=== PATIENT | female | born 1955 | race Two or more races ===

== ENCOUNTER 2020-06-08 18:15 | Inpatient (IN) | payer OTHER, MEDICARE ==
[~2020-06-08] VITALS: Ht 162.6 cm; Wt 112.9 kg
[~2020-06-08 18:15] MED LIST: ACCU-CHEK; ACET-2154 PO; ALBU2.5V38 IH; AMIN30LI2 PO; AMLO10TA59 PO; ATOR20TA PO; CHLO118L4 TP; CLON1PAT TD; CRANBERRY CAP PO; DOCU-141 PO; EPOE3000 SQ; FERR325T28 PO; FLUT16SP2 NS; FURO-152 PO; HYDR25TA86 PO; INSU100I19 SQ; LACT1CAP26 PO; LEVO500T2 PO; MULT-594 PO; Metoprolol Tartrate PO; OMEPRAZOLE PO; POTA-10 PO; TRAM50TA PO
--- NOTE | 2020-06-08 18:56 | NUR ---
Assumed care of patient. No acute distress noted. Awaiting inpatient admission.
[2020-06-08 18:58] LABS: BASOPHILS # (AUTO) 0.1 K/uL (0.0-8.0); BASOPHILS % (AUTO) 0.9 % (0.0-2.0); EOSINOPHILS # (AUTO) 0.1 K/uL (0.0-0.7); EOSINOPHILS % (AUTO) 0.9 % (0.0-7.0); HEMATOCRIT 29.5 % (31.2-41.9); HEMOGLOBIN 8.7 g/dL (10.9-14.3); LYMPHOCYTES # (AUTO) 1.3 K/uL (20.0-40.0); LYMPHOCYTES % (AUTO) 10.2 % (20.5-51.5); MEAN CORPUSCULAR HEMOGLOBIN 23.2 uug (24.7-32.8); MEAN CORPUSCULAR HGB CONC 30 g/dL (32.3-35.6); MEAN CORPUSCULAR VOLUME 78.5 fL (75.5-95.3); MONOCYTES # (AUTO) 0.7 K/uL (2.0-10.0); MONOCYTES % (AUTO) 5.2 % (0.0-11.0); NEUTROPHILS # (AUTO) 10.5 K/uL (1.8-8.9); NEUTROPHILS % (AUTO) 82.8 % (38.5-71.5); PLATELET COUNT (AUTO) 522 K/uL (179-408); RED BLOOD CELL COUNT(AUTO) 3.75 MIL/uL (3.63-4.92); WHITE BLOOD COUNT (AUTO) 12.7 K/uL (3.8-11.8)
[2020-06-08 19:19] LABS: BILIRUBIN,DIRECT 0.1 mg/dL (0.0-0.2); BILIRUBIN,TOTAL 0.3 mg/dL (0.2-1.0); POTASSIUM 4.8 mmol/L (3.5-5.1); TOTAL PROTEIN, SERUM 7.6 g/dL (6.4-8.2)
[2020-06-08 19:21] LABS: CREATININE 7.5 mg/dL (0.6-1.3)
[2020-06-08] MEDS ORDERED: MORPHINE SULFATE 2 MG/1 ML DISP.SYRIN ONE (19:44)
[2020-06-08] MEDS ORDERED: CALCIUM GLUCONATE IV 1 GM in IV DEXTROSE 5% 50 ML IV ONE (19:45)
[2020-06-08] MEDS ORDERED: MORPHINE SULFATE 2 MG/1 ML DISP.SYRIN IV ONE (19:45)
--- NOTE | 2020-06-08 19:47 | NUR ---
RT at bedside to suction the patient
[2020-06-08] MEDS ORDERED: CALCIUM GLUCONATE 1 GM/10 ML VIAL IV ONE (19:52)
[2020-06-08 19:54] LABS: *BILIRUBIN,URIN NEGATIVE (NEGATIVE); *BLOOD, URINE 2+ (NEGATIVE); *CLARITY,URINE CLOUDY (CLEAR); *COLOR,URINE YELLOW (YELLOW); *KETONES,URINE NEGATIVE (NEGATIVE); *UROBILINOGEN,URINE 0.2 E.U./dl (NORMAL); LEUKOCYTE ESTERASE ,URINE 3+ (NEGATIVE); NITRITE, URINE POSITIVE (NEGATIVE); UGLUCOSE NEGATIVE (NEGATIVE)
[2020-06-08] MEDS ORDERED: PIPERACILLIN SODIUM/TAZOBACTAM 3.375 G in IV DEXTROSE 5% 50 ML IV ONE (20:00)
[2020-06-08] MEDS ORDERED: IV NORMAL SALINE 1000 ML BAG IV ONE (20:00)
[2020-06-08] MEDS ORDERED: CHOL10002 PO (20:02)
[2020-06-08] MEDS ORDERED: POTA20TA83 PO (20:02)
[2020-06-08] MEDS ORDERED: VITAMIN D3 PO (20:02)
[2020-06-08] MEDS ORDERED: FERR325T28 PO (20:02)
[2020-06-08] MEDS ORDERED: MAGN400C PO (20:02)
[2020-06-08] MEDS ORDERED: CRAN425C6 PO (20:02)
[2020-06-08] MEDS ORDERED: LOSA50TA39 PO (20:02)
[2020-06-08] MEDS ORDERED: METO50CA PO (20:02)
[2020-06-08] MEDS ORDERED: FURO-151 PO (20:02)
[2020-06-08] MEDS ORDERED: IPRA4AER IH (20:02)
[2020-06-08] MEDS ORDERED: ATOR20TA PO (20:02)
[2020-06-08] MEDS ORDERED: POTASSIUM PO (20:02)
[2020-06-08] MEDS ORDERED: TRAM50TA2 PO (20:02)
[2020-06-08] MEDS ORDERED: INSU100I26 SQ (20:02)
[2020-06-08] MEDS ORDERED: CLON0.1T PO (20:02)
[2020-06-08] MEDS ORDERED: METO5TAB7 PO (20:02)
[2020-06-08] MEDS ORDERED: APIX5TAB PO (20:02)
[2020-06-08] MEDS ORDERED: EPOE1000 IJ (20:02)
[2020-06-08] MEDS ORDERED: LIDOCAINE GEL TOP (20:02)
[2020-06-08] MEDS ORDERED: PIPERACILLIN/TAZOBACTAM/D5W 50 ML IV ONE (20:03)
--- NOTE | 2020-06-08 20:03 | NUR ---
Report to Shila MARINELLI on Tele Pt. admitted to Tele , under care of Dr. Bose Belongs List completed
[2020-06-08 20:05] LABS: RBC,URINE 20-50 /HPF (0-3)
[2020-06-08 20:06] LABS: BACTERIA,URINE MODERATE /HPF (NONE SEEN); SQUAMOUS EPITHELIAL CELL,UR FEW /HPF (NONE SEEN)
[2020-06-08 20:07] LABS: WBC,URINE 50-80 /HPF (0-3)
--- NOTE | 2020-06-08 21:15 | NUR ---
Pt arrived on unit at 2049 in stable condition. AOx4 able to make needs known. Assessment complete, belongings accounted for. Trach with trach mask intact, pt on 2L sating at 98%. SR on monitor. No other issues or concerns at this time.
[2020-06-08] MEDS ORDERED: IV NS 1000 ML 1,000 ML IV ONE (22:45)
[2020-06-08 23:07] VITALS: BP 97/42
[2020-06-08] MEDS ORDERED: DEXTROSE 50% 50 ML DISP.SYRIN IV PRN (23:15)
[2020-06-08] MEDS: BLOOD SUGAR DIAGNOSTIC 1 EACH STRIP VI SCH (23:42)
[2020-06-09] VITALS (50 sets, daily range): BP systolic 92–162; BP diastolic 38–91
[2020-06-09] MEDS: TRAMADOL HCL 50 MG TABLET PO SCH ×2 (00:10→08:33)
[2020-06-09 02:45] LABS: BASOPHILS # (AUTO) 0.2 K/uL (0.0-8.0); EOSINOPHILS # (AUTO) 0.2 K/uL (0.0-0.7); HEMATOCRIT 32.3 % (31.2-41.9); HEMOGLOBIN 9.3 g/dL (10.9-14.3); LYMPHOCYTES # (AUTO) 4.3 K/uL (20.0-40.0); MEAN CORPUSCULAR HEMOGLOBIN 23.3 uug (24.7-32.8); MEAN CORPUSCULAR HGB CONC 29 g/dL (32.3-35.6); MEAN CORPUSCULAR VOLUME 81.1 fL (75.5-95.3); MONOCYTES # (AUTO) 0.8 K/uL (2.0-10.0); MONOCYTES % (AUTO) 3.8 % (0.0-11.0); NEUTROPHILS # (AUTO) 16.1 K/uL (1.8-8.9); NEUTROPHILS % (AUTO) 74.2 % (38.5-71.5); PLATELET COUNT (AUTO) 586 K/uL (179-408); RED BLOOD CELL COUNT(AUTO) 3.98 MIL/uL (3.63-4.92); WHITE BLOOD COUNT (AUTO) 21.6 K/uL (3.8-11.8)
--- NOTE | 2020-06-09 02:45 | NUR ---
received patient non responsive , on vent settings of ac 16 tv 500 p 5 and fio2 100 % , 24 ga on right hand , 20 ga left hand , ngt inserted , placement veified , guerrero inserted , , no fever , family is called by nurse rainer no response
[2020-06-09 02:50] LABS: POTASSIUM 5.1 mmol/L (3.5-5.1)
--- NOTE | 2020-06-09 03:00 | NUR ---
dr rankin and dr xavier are here to see patient
[2020-06-09 03:01] LABS: BILIRUBIN,TOTAL 0.4 mg/dL (0.2-1.0); TOTAL PROTEIN, SERUM 7.7 g/dL (6.4-8.2)
--- NOTE | 2020-06-09 03:20 | NUR ---
Pt became unresponsive at 0154H and code blue was called. Code blue protocol followed. Dr. Ledesma attended, charge nurse on floor , ER charge nurse, RT all attended code. Labs were drawn, EKG was done. Pt then transferred to CCU bed 1 in stable condition. Jalyn Ron was called to be notified at 0254H, call was not answered and message was left. Addendum: 06/11/20 at 2239 by TOMMIE BRADY RN Pt was c/o left lower leg pain and was slightly restless complaining that she could not get comfortable, tramadol was given at 0010H on 06/09/20. Pt was placed on vent with settings received from [facility] on 06/08/20 at around 2300H. After placed on vent, pt seemed less restless and went to sleep. Around 0145H on 06/09/20 high pressure alarm on vent was beeping, I went into the room to check on the patient with the RT on duty that night. Pt was restless, trying to get comfortable in bed. RT suctioned patient and no sputum was noted. Then patient became unresponsive at 0154H and randee palacios was called.
[2020-06-09] MEDS ORDERED: VANCOMYCIN IV 500 MG in IV DEXTROSE 5% 100 ML IV ONE ×2 (03:30→06:00)
--- NOTE | 2020-06-09 03:30 | NUR ---
guerrero 16 fr inserted , urine draining cloudy
[2020-06-09] MEDS ORDERED: VANCOMYCIN HCL 500 MG VIAL ONE (03:42)
[2020-06-09] MEDS ORDERED: PIPERACILLIN SODIUM/TAZO 3.375 GM VIAL ONE (03:43)
[2020-06-09] MEDS ORDERED: PIPERACILLIN SODIUM/TAZOBACTAM 3.375 G in IV DEXTROSE 5% 50 ML IV SCH ×2 (03:45→04:05)
[2020-06-09] MEDS ORDERED: IV 1/2NS 1000 ML 1,000 ML IV ONE (03:45)
--- NOTE | 2020-06-09 04:00 | NUR ---
Dr Hartman & DR Ledesma of ER at bedside.
--- NOTE | 2020-06-09 04:00 | NUR ---
family member called magaly xavier gave a undate on the patient;s condition
[2020-06-09] MEDS ORDERED: VANCOMYCIN IV 2,000 MG in IV DEXTROSE 5% 500 ML IV ONE (04:15)
--- NOTE | 2020-06-09 04:15 | NUR ---
rashi access placed on the right internal ij , cxr done
[2020-06-09 04:19] LABS: ABG BASE EXCESS -13.9 mmol/L; ABG HCO3 15.3 mmol/L; ABG PCO2 50.5 mmHg (35.0-45.0); ABG PH 7.098 (7.350-7.450); ABG PO2 66.3 mmHg (75.0-100.0); ABG SITE RIGHT RADIAL; ABG TOTAL HEMOGLOBIN 9.8 G/dL (12.0-16.0); COHb 0.7 % (0.5-1.5); MetHb 0.4 % (0.0-1.5); VENT MODE VENT - A/C; VT, ABG 500 mL
[2020-06-09] MEDS ORDERED: SODIUM BICARBONATE 8.4% 50 MEQ/50 ML DISP.SYRIN IV ONE ×2 (04:30→06:00)
[2020-06-09 04:36] LABS: ABG BASE EXCESS -14.6 mmol/L; ABG HCO3 15.6 mmol/L; ABG PCO2 53.8 mmHg (35.0-45.0); ABG SITE RIGHT RADIAL; ABG TOTAL HEMOGLOBIN 14.5 G/dL (12.0-16.0); COHb 1.4 % (0.5-1.5); MetHb 0.4 % (0.0-1.5); VENT MODE VENT - A/C; VT, ABG 500 mL
[2020-06-09] MEDS ORDERED: VASOPRESSIN 40 UNIT in IV NORMAL SALINE 40 ML IV PRN (05:00)
--- NOTE | 2020-06-09 05:00 | NUR ---
dr steel is called to notify of consult
[2020-06-09] MEDS ORDERED: SODIUM BICARBONATE 8.4% 100 MEQ in IV 1/2NS 1000 ML 1,000 ML IV PRN (05:15)
--- NOTE | 2020-06-09 05:25 | NUR ---
family members at bedside agreed on hemodialysis and picc line placement , dr marie made aware
[2020-06-09] MEDS ORDERED: EPINEPHRINE 1:10,000 1 MG/10 ML DISP.SYRIN IV ONE (06:00)
[2020-06-09] MEDS: NOREPINEPHRINE BITARTRATE 8 MG in IV NORMAL SALINE 242 ML IV PRN (06:00)
[2020-06-09] MEDS ORDERED: ATROPINE SULFATE 1 MG/10 ML DISP.SYRIN IV ONE (06:00)
--- NOTE | 2020-06-09 06:00 | NUR ---
0155 - In pt room to check on pt (on NOC ventilator settings per MD orders at this point) doing rounds w/ RN PHANI in room and code blue called. ED MD KESHA ran said code. Pt subsequently transferred to the ICU/CCU. Settings were AC 16, VT 500, PEEP +5 and 28% prior for sleep. When code was called FIO2 was increased to 100%. 0245 - Pt has been transferred to room CCU-1 0355 - Due to desaturation pt placed on rate of 20 and PEEP of +10. RNs DANIEL/CT aware and notified, 0420 - Post ABG results respiratory rate to increased to 24 and VT to 550
--- NOTE | 2020-06-09 06:00 | NUR ---
levophed started at 0.1 mcg , vent setting ac 24 tv 550 , p 10 100 fio2 % , using rashi cath assess , dr coughlin , while waiting for picc line placement , non responsive , 20 ga access on left hand iv 1/2 ns + 100meq na bicarb running , paul comycin aand zozyn given
--- NOTE | 2020-06-09 06:00 | NUR ---
dr santo notified of abg and patient's condition , hx and medications given , no orders received
--- NOTE | 2020-06-09 06:22 | NUR ---
dr hansa wilson notified of consult
--- NOTE | 2020-06-09 07:02 | NUR ---
picc line is here to insert picc line
[2020-06-09] MEDS: BLOOD SUGAR DIAGNOSTIC 1 EACH STRIP VI SCH ×4 (07:08→21:13)
--- NOTE | 2020-06-09 07:15 | NUR ---
Received report from claims customer service representative nurse, patient in bed obtunded, on Hilda vent a/c 24 TV 550 Peep 10 Fio2 100%, sinus rhythm on the monitor, oxygen saturation 99%, patient is on levophed 0.1mcg/kg/min, IV bicarb drip, and currently having a right upper arm picc placment. Patient has NG tube in right nares clamped, Ruff catheter in tact and has yellow clear minimal drainage. BVM at bedside, bed in low position, side rails up x2. All alarms checked.
[2020-06-09] MEDS: INSULIN REGULAR, HUMAN 300 UNIT/3 ML VIAL SQ PRN ×4 (07:16→21:20)
[2020-06-09 07:51] LABS: MAGNESIUM 2.5 mg/dL (1.8-2.4)
[2020-06-09 07:53] LABS: PHOSPHOROUS 11.5 mg/dL (2.5-4.9)
[2020-06-09] MEDS ORDERED: MANNITOL 25% 12.5 G/50 ML VIAL IV ONE (08:00)
[2020-06-09] MEDS: PANTOPRAZOLE SODIUM 40 MG VIAL IV SCH (08:33)
--- NOTE | 2020-06-09 11:47 | NUR ---
Notified Dr. Ward of increased troponin levels. No new orders received at this time.
[2020-06-09] MEDS ORDERED: HEPARIN/D5W DRIP 500 ML IV PRN (12:00)
--- NOTE | 2020-06-09 12:35 | NUR ---
WOUND CARE CONSULT: PT PRESENTS WITH REDNESS, WEEPING EDEMA, CRUSTING TO LEFT LOWER LEG, RASH TO RT AXILLA AND PERIANAL REDNESS WITH HEMORRHOIDS NOTED, PRESENT ON ADMISSION. RECOMMENDATIONS MADE FOR SKIN PROTECTION. DISCUSSED WITH NURSING STAFF. DPM CONSULT CALLED TO DR SOLITARIO. [facility] ORDERED. IN AGREEMENT WITH PLAN OF CARE. Addendum: 06/09/20 at 1237 by JARED AVENDANO RN Amended: Links added.
[2020-06-09] MEDS: VANCOMYCIN IV 500 MG in IV DEXTROSE 5% 100 ML IV PRN (12:36)
[2020-06-09] MEDS ORDERED: Z GUARD REMEDY PASTE 57 GM TUBE TOP PRN (12:45)
[2020-06-09] MEDS ORDERED: TRAMADOL HCL 50 MG TABLET PO PRN (13:30)
[2020-06-09] MEDS ORDERED: HOME MED MISCELLANEOUS XX SCH ×2 (13:30)
[2020-06-09] MEDS ORDERED: MISCELLANEOUS MED XX PRN ×2 (13:30)
[2020-06-09] MEDS ORDERED: ACETAMINOPHEN 325 MG TABLET PO PRN (13:30)
[2020-06-09] MEDS ORDERED: PIPERACILLIN/TAZO 2.25 G in IV DEXTROSE 5% 50 ML IV SCH (14:00)
--- NOTE | 2020-06-09 16:00 | NUR ---
Patient transported to CT scan without incident, vitals stable, no distress noted during transfer.
--- NOTE | 2020-06-09 16:17 | NUR ---
Patient transferred to [facility] bed.
[2020-06-09] MEDS: METOPROLOL SUCCINATE XL 50 MG TAB.SR.24H PO SCH (16:53)
[2020-06-09] MEDS: CLOTRIMAZOLE 1% CREAM 30 GM TUBE TOP SCH (16:53)
[2020-06-09] MEDS ORDERED: APIXABAN 5 MG TABLET PO SCH (17:00)
[2020-06-09] MEDS ORDERED: FERROUS SULFATE 325 MG TABEC PO SCH (17:00)
[2020-06-09] MEDS ORDERED: ACETAMINOPHEN 325 MG TABLET PO SCH (17:00)
[2020-06-09] MEDS ORDERED: MAGNESIUM OXIDE 400 MG TABLET PO SCH (17:00)
[2020-06-09] MEDS: EPOETIN ALFA-EPBX 20,000 UNIT/ML VIAL SQ SCH (17:14)
--- NOTE | 2020-06-09 18:00 | NUR ---
Instructions for Heparin drip sent to pharmacy per Dr. Ward. recheck of Appt to be completed 6 hours after initiation.
--- NOTE | 2020-06-09 18:45 | NUR ---
Discussed heparin dosing for morbidly obese patient with pharmacist, 8000units bolus to be given, and infusion to start at 1200units per protocol with aptt drawn in 6 hours after initiation.
[2020-06-09] MEDS ORDERED: HEPARIN SODIUM,PORCINE 5,000 UNITS/ML VIAL IV ONE (19:00)
--- NOTE | 2020-06-09 19:24 | NUR ---
Patient in bed with eyes open but not following commands, on Hilda vent a/c 24 TV 550 Peep 10 Fio2 90%, sinus rhythm on the monitor, oxygen saturation 98%, Patient has upper arm picc. Patient has NG tube in right nares clamped, Ruff catheter in tact and has yellow clear minimal drainage. BVM at bedside, bed in low position, side rails up x2. patient has been put on Barimaxx, and reported all medication updates and tube feeding requirements to oncoming shift.
--- NOTE | 2020-06-09 19:30 | NUR ---
Report received. Patient admitted for ARF, S/P code blue this am, with trache Shiley#6 XLT and to mechanical ventilator settings as follows: AC=24, EM=499 ml, FIO2=90% and PEEP=10 cm. O2 saturations above 94%. Opens eyes randomly, doesn't track but grimaces to pain. Bedside arterial US of bilateral LEs in progress. traffic monitor specialist: SR; rate 80's, BPs stable. Levophed drip has been off since 1230 as per report. Assessment done. Addendum: 06/09/20 at 2226 by MINERVA WARD RN Amended: Links added. Addendum: 06/09/20 at 2227 by MINERVA WARD RN Amended: Links added. Addendum: 06/09/20 at 2227 by MINERVA WARD RN Amended: Links added. Addendum: 06/09/20 at 2228 by MINERVA WARD RN Amended: Links added. Addendum: 06/09/20 at 2228 by MINERVA WARD RN Amended: Links added. Addendum: 06/09/20 at 8 by MINERVA WARD RN Amended: Links added. Addendum: 06/09/20 at 2227 by MINERVA WARD RN Amended: Links added. Addendum: 06/09/20 at 8 by MINERVA TAECHARATKIJ RN Amended: Links added. Addendum: 06/09/20 at 2230 by MINERVA WARD RN Amended: Links added. Addendum: 06/09/20 at 2235 by MINERVA WARD RN Amended: Links added. Addendum: 06/09/20 at 2307 by MINERVA WARD RN Amended: Links added. Addendum: 06/10/20 at 0049 by MINERVA WARD RN Amended: Links added. Addendum: 06/10/20 at 0058 by MINERVA WARD RN Amended: Links added. Addendum: 06/10/20 at 0100 by MINERVA WARD RN Amended: Links added.
--- NOTE | 2020-06-09 20:05 | NUR ---
Heparin 8,000 units bolus given; Heparin drip started at 1200 units/H as per protocol for ACS. Addendum: 06/09/20 at 2235 by MINERVA WARD RN Amended: Links added. Addendum: 06/09/20 at 2307 by MINERVA WARD RN Amended: Links added. Addendum: 06/10/20 at 0049 by MINERVA WARD RN Amended: Links added. Addendum: 06/10/20 at 0058 by MINERVA WARD RN Amended: Links added. Addendum: 06/10/20 at 0100 by MINERVA WARD RN Amended: Links added.
--- NOTE | 2020-06-09 20:35 | NUR ---
Patient's nelly Holley called; asking a lot of questions. Updated of patient's condition. Addendum: 06/09/20 at 2230 by MINERVA WARD RN Amended: Links added. Addendum: 06/09/20 at 223 by MINERVA WARD RN Amended: Links added. Addendum: 06/09/20 at 2307 by MINERVA WARD RN Amended: Links added. Addendum: 06/10/20 at 0049 by MINERVA WARD RN Amended: Links added. Addendum: 06/10/20 at 0058 by MINERVA WARD RN Amended: Links added. Addendum: 06/10/20 at 0100 by MINERVA WARD RN Amended: Links added.
--- NOTE | 2020-06-09 20:46 | NUR ---
Results of arterial US of Bilateral LEs called to Dr. Stephen combustion engineer for Dr. Kilpatrick. Made aware that patient is being seen by Dr. Ward and patient is on Heparin drip. No order received.
[2020-06-09] MEDS ORDERED: ATORVASTATIN 20 MG TABLET PO SCH (21:00)
[2020-06-09] MEDS ORDERED: INSULIN GLARGINE,HUM 300 UNITS/3 ML CARTRIDGE SQ SCH (21:00)
[2020-06-09] MEDS: CHLORHEXIDINE GLUCONATE 15 ML MOUTHWASH MM SCH (21:12)
[2020-06-09] MEDS: Z GUARD REMEDY PASTE 57 GM TUBE TOP SCH (21:12)
[2020-06-09] MEDS: ATORVASTATIN 40 MG TABLET PO SCH (21:12)
[2020-06-09] MEDS: ASPIRIN 81 MG TAB.CHEW PO SCH (21:14)
[2020-06-09] MEDS: NEPRO 1000 ML NG PRN (21:17)
[2020-06-09] MEDS: INSULIN GLARGINE,HUM 300 UNITS/3 ML CARTRIDGE SQ SCH (21:19)
[2020-06-09] MEDS ORDERED: MEROPENEM 500 MG in IV NORMAL SALINE 50 ML IV ONE (22:00)
[2020-06-09] MEDS ORDERED: MEROPENEM 500MG/NS 50ML PB ***ER PYXIS ONLY IV ONE (22:36)
--- NOTE | 2020-06-09 23:15 | NUR ---
Monitor shows: ST rate 140's. Temp checked=99.8 orally. Cooling measures initiated. Bath given; skin care provided. Wound care treatment of LLE done. Leg wound is red, with dry, scaly skin and with small amounts of serosanguineous drainage to calf area. Both legs and heels offloaded with pillows. Addendum: 06/10/20 at 0049 by MINERVA WARD RN Amended: Links added. Addendum: 06/10/20 at 0058 by MINERVA WARD RN Amended: Links added. Addendum: 06/10/20 at 0100 by MINERVA WARD RN Amended: Links added.
[2020-06-09] MEDS: ACETAMINOPHEN 325 MG TABLET PO PRN (23:18)
[2020-06-10] VITALS (24 sets, daily range): BP systolic 113–161; BP diastolic 54–111
--- NOTE | 2020-06-10 00:15 | NUR ---
Converted to SR rate 80's. BPs remain stable. Addendum: 06/10/20 at 0100 by MINERVA WARD RN Amended: Links added.
--- NOTE | 2020-06-10 02:35 | NUR ---
PTT drawn by stephane at 0200; awaiting for results. Addendum: 06/10/20 at 0324 by MINERVA WARD RN Amended: Links added.
--- NOTE | 2020-06-10 03:09 | NUR ---
PTT=41.8 seconds. Heparin drip increased to 1400 units/H as per protocol. Repeat PTT in 6 hours.
[2020-06-10 04:56] LABS: BASOPHILS # (AUTO) 0.1 K/uL (0.0-8.0); BASOPHILS % (AUTO) 0.3 % (0.0-2.0); HEMATOCRIT 25.9 % (31.2-41.9); HEMOGLOBIN 7.8 g/dL (10.9-14.3); LYMPHOCYTES # (AUTO) 0.8 K/uL (20.0-40.0); LYMPHOCYTES % (AUTO) 4.8 % (20.5-51.5); MEAN CORPUSCULAR HEMOGLOBIN 23.4 uug (24.7-32.8); MEAN CORPUSCULAR HGB CONC 30 g/dL (32.3-35.6); MEAN CORPUSCULAR VOLUME 77.5 fL (75.5-95.3); MONOCYTES # (AUTO) 0.9 K/uL (2.0-10.0); MONOCYTES % (AUTO) 5.5 % (0.0-11.0); NEUTROPHILS # (AUTO) 15.3 K/uL (1.8-8.9); NEUTROPHILS % (AUTO) 89.4 % (38.5-71.5); PLATELET COUNT (AUTO) 422 K/uL (179-408); RED BLOOD CELL COUNT(AUTO) 3.34 MIL/uL (3.63-4.92); WHITE BLOOD COUNT (AUTO) 17.1 K/uL (3.8-11.8)
[2020-06-10 05:00] LABS: CREATININE 6.7 mg/dL (0.6-1.3); MAGNESIUM 2.1 mg/dL (1.8-2.4); PHOSPHOROUS 7.1 mg/dL (2.5-4.9); VANCOMYCIN,RANDOM 10.9 ug/mL (18.0-26.0)
[2020-06-10 05:25] LABS: *BILIRUBIN,URIN NEGATIVE (NEGATIVE); *BLOOD, URINE 2+ (NEGATIVE); *CLARITY,URINE CLOUDY (CLEAR); *COLOR,URINE YELLOW (YELLOW); *KETONES,URINE 1+ (NEGATIVE); *UROBILINOGEN,URINE 0.2 E.U./dl (NORMAL); LEUKOCYTE ESTERASE ,URINE 2+ (NEGATIVE); NITRITE, URINE NEGATIVE (NEGATIVE); UGLUCOSE NEGATIVE (NEGATIVE)
[2020-06-10 05:41] LABS: RBC,URINE 20-50 /HPF (0-3)
[2020-06-10 05:42] LABS: BACTERIA,URINE MODERATE /HPF (NONE SEEN); SQUAMOUS EPITHELIAL CELL,UR MODERATE /HPF (NONE SEEN); WBC,URINE 50-80 /HPF (0-3); YEAST,URINE MODERATE /HPF (NONE SEEN)
[2020-06-10 05:45] LABS: *URINE TOTAL PROTEIN RANDOM 274.3 mg/dL (<150/24HR)
--- NOTE | 2020-06-10 06:08 | NUR ---
Patient's niece called; updated of condition. Addendum: 06/10/20 at 0618 by MINERVA WARD RN Amended: Links added.
[2020-06-10] MEDS: BLOOD SUGAR DIAGNOSTIC 1 EACH STRIP VI SCH ×4 (06:57→21:13)
[2020-06-10] MEDS: INSULIN REGULAR, HUMAN 300 UNIT/3 ML VIAL SQ PRN ×4 (06:58→21:12)
[2020-06-10 07:22] LABS: ABG BASE EXCESS -4.2 mmol/L; ABG HCO3 19.7 mmol/L; ABG PCO2 31.5 mmHg (35.0-45.0); ABG PH 7.414 (7.350-7.450); ABG PO2 70.2 mmHg (75.0-100.0); ABG SITE RIGHT RADIAL; ABG TOTAL HEMOGLOBIN 9.1 G/dL (12.0-16.0); COHb 0.7 % (0.5-1.5); MetHb 0.4 % (0.0-1.5); O2Hb 92.3 % (94.0-97.0); VENT MODE VENT - A/C; VT, ABG 550 mL
[2020-06-10] MEDS: ERGOCALCIFEROL 50,000 UNIT CAPSULE PO SCH (08:09)
[2020-06-10] MEDS: PANTOPRAZOLE SODIUM 40 MG VIAL IV SCH (08:09)
[2020-06-10] MEDS: MULTIVITAMINS,THERAPEUTIC TABLET PO SCH (08:09)
[2020-06-10] MEDS: ASPIRIN 81 MG TAB.CHEW PO SCH (08:09)
[2020-06-10] MEDS: CHLORHEXIDINE GLUCONATE 15 ML MOUTHWASH MM SCH ×2 (08:09→20:59)
[2020-06-10] MEDS: FLUTICASONE PROP NASAL SPRAY 16 GM BOTTLE NS SCH (08:37)
[2020-06-10] MEDS: CLOTRIMAZOLE 1% CREAM 30 GM TUBE TOP SCH ×3 (08:38→18:14)
[2020-06-10] MEDS: Z GUARD REMEDY PASTE 57 GM TUBE TOP SCH ×2 (08:39→21:13)
[2020-06-10] MEDS: AMMONIUM LACTATE 12% LOTION 225 GM BOTTLE TP SCH (08:39)
[2020-06-10] MEDS: FERROUS SULFATE 300 MG/5 ML LIQUID UDC PO SCH ×3 (08:52→18:08)
[2020-06-10] MEDS ORDERED: POTASSIUM CHLORIDE 20 MEQ TAB.PRT.SR PO SCH (09:00)
[2020-06-10] MEDS ORDERED: LOSARTAN POTASSIUM 50 MG TABLET PO SCH (09:00)
[2020-06-10] MEDS: HEPARIN SODIUM,PORCINE 5,000 UNITS/ML VIAL SQ SCH ×2 (09:17→21:00)
[2020-06-10 09:21] LABS: BASOPHILS # (AUTO) 0.1 K/uL (0.0-8.0); BASOPHILS % (AUTO) 0.3 % (0.0-2.0); HEMATOCRIT 25.6 % (31.2-41.9); HEMOGLOBIN 7.8 g/dL (10.9-14.3); LYMPHOCYTES # (AUTO) 0.8 K/uL (20.0-40.0); LYMPHOCYTES % (AUTO) 4.4 % (20.5-51.5); MEAN CORPUSCULAR HEMOGLOBIN 23.5 uug (24.7-32.8); MEAN CORPUSCULAR HGB CONC 31 g/dL (32.3-35.6); MEAN CORPUSCULAR VOLUME 76.8 fL (75.5-95.3); MONOCYTES # (AUTO) 0.8 K/uL (2.0-10.0); MONOCYTES % (AUTO) 4.4 % (0.0-11.0); NEUTROPHILS # (AUTO) 16.8 K/uL (1.8-8.9); NEUTROPHILS % (AUTO) 90.9 % (38.5-71.5); PLATELET COUNT (AUTO) 446 K/uL (179-408); RED BLOOD CELL COUNT(AUTO) 3.33 MIL/uL (3.63-4.92); WHITE BLOOD COUNT (AUTO) 18.4 K/uL (3.8-11.8)
--- NOTE | 2020-06-10 11:45 | NUR ---
patient had dialysis done with no significant events. 1L removed.
[2020-06-10] MEDS ORDERED: VANCOMYCIN IV 1,000 MG in IV DEXTROSE 5% 250 ML IV ONE (13:00)
[2020-06-10] MEDS: METOPROLOL SUCCINATE XL 50 MG TAB.SR.24H PO SCH (18:00)
[2020-06-10] MEDS: ACETAMINOPHEN 325 MG TABLET PO PRN (19:59)
--- NOTE | 2020-06-10 20:00 | NUR ---
RECEIVED PT OBTUNDED OPEN HER EYES TO NOXIOUS STIMULI W/ NO EYE CONTACT. TRACH TO VENT W/ SETTINGS OF AC-24, TV-550, FIO2-90%, PEEP-+10 W/ O2 SAT OF 100%. SUCTIONED VIA TRACH & ORALLY W/ MIN. TANNISH THIN MUCOUS. NGT PN R NARE CHECKED PLACEMENT & CHECKED RESIDUAL NONE NOTED. ON TUBE FDG OF NEPHRO @ 35CC/HR. PICC LINE ON DARREN INTACT & PATENT. ALESHA CATH ON LEFT IJ. TEMP-100.8. NERA WAS HERE WAS MADE AWARE. TYLENOL 650MG GIVEN VIA NGT. KEPT HOB ELEVATED .
[2020-06-10] MEDS: METOPROLOL TARTRATE 25 MG TABLET GT SCH (20:58)
[2020-06-10] MEDS: ATORVASTATIN 40 MG TABLET PO SCH (20:59)
[2020-06-10] MEDS: MEROPENEM 500 MG in IV NORMAL SALINE 50 ML IV SCH (20:59)
[2020-06-10] MEDS: INSULIN GLARGINE,HUM 300 UNITS/3 ML CARTRIDGE SQ SCH (21:11)
[2020-06-11] VITALS (24 sets, daily range): BP systolic 114–169; BP diastolic 53–115
--- NOTE | 2020-06-11 00:04 | NUR ---
ALL THE NURSES INTERVENTIONS @ 2000 & 2199 WAS DONE BY KWAME DSOUZA RN.
[2020-06-11] MEDS ORDERED: DEXTROSE 50% 50 ML DISP.SYRIN IV PRN (00:15)
[2020-06-11] MEDS: IV NORMAL SALINE 250 ML IV PRN (04:06)
[2020-06-11] MEDS: ACETAMINOPHEN 325 MG TABLET PO PRN ×3 (04:15→19:37)
--- NOTE | 2020-06-11 04:30 | NUR ---
AM CARE DONE. ORAL CARE DONE. TRACH CARE DONE.
[2020-06-11 05:06] LABS: BASOPHILS % (AUTO) 0.2 % (0.0-2.0); HEMATOCRIT 26.4 % (31.2-41.9); HEMOGLOBIN 7.7 g/dL (10.9-14.3); LYMPHOCYTES # (AUTO) 0.8 K/uL (20.0-40.0); LYMPHOCYTES % (AUTO) 4.1 % (20.5-51.5); MEAN CORPUSCULAR HEMOGLOBIN 22.6 uug (24.7-32.8); MEAN CORPUSCULAR HGB CONC 29 g/dL (32.3-35.6); MEAN CORPUSCULAR VOLUME 77.4 fL (75.5-95.3); MONOCYTES # (AUTO) 0.8 K/uL (2.0-10.0); MONOCYTES % (AUTO) 4.3 % (0.0-11.0); NEUTROPHILS # (AUTO) 16.9 K/uL (1.8-8.9); NEUTROPHILS % (AUTO) 91.4 % (38.5-71.5); PLATELET COUNT (AUTO) 408 K/uL (179-408); RED BLOOD CELL COUNT(AUTO) 3.42 MIL/uL (3.63-4.92); WHITE BLOOD COUNT (AUTO) 18.5 K/uL (3.8-11.8)
[2020-06-11 05:36] LABS: ABG BASE EXCESS 0.2 mmol/L; ABG HCO3 23.3 mmol/L; ABG PCO2 31.6 mmHg (35.0-45.0); ABG PH 7.486 (7.350-7.450); ABG PO2 87.3 mmHg (75.0-100.0); ABG SITE RIGHT RADIAL; ABG TOTAL HEMOGLOBIN 8.8 G/dL (12.0-16.0); MetHb 0.3 % (0.0-1.5); O2Hb 95.7 % (94.0-97.0); VENT MODE VENT - A/C; VT, ABG 550 mL
[2020-06-11] MEDS: BLOOD SUGAR DIAGNOSTIC 1 EACH STRIP VI SCH ×4 (05:36→23:36)
[2020-06-11] MEDS: INSULIN REGULAR, HUMAN 300 UNIT/3 ML VIAL SQ PRN ×4 (05:38→23:39)
[2020-06-11 05:39] LABS: BILIRUBIN,TOTAL 0.7 mg/dL (0.2-1.0); CREATININE 5.8 mg/dL (0.6-1.3); MAGNESIUM 2.3 mg/dL (1.8-2.4); PHOSPHOROUS 5.1 mg/dL (2.5-4.9); POTASSIUM 4.1 mmol/L (3.5-5.1); TOTAL PROTEIN, SERUM 6.6 g/dL (6.4-8.2)
[2020-06-11] MEDS: ALBUTEROL SULFATE 2.5 MG/3 ML NEBU NEB PRN (07:48)
[2020-06-11] MEDS: IPRATROPIUM BROMIDE 0.5 MG/2.5 ML NEBU NEB PRN (07:48)
--- NOTE | 2020-06-11 07:57 | NUR ---
doctor santo in the unit decreased vent settings to AC rate of 20 from 24.
[2020-06-11] MEDS: PANTOPRAZOLE ORAL SUSPENSION 40 MG SUSPDR.PKT GT SCH (08:52)
[2020-06-11] MEDS: METOPROLOL TARTRATE 25 MG TABLET GT SCH (08:52)
[2020-06-11] MEDS: CHLORHEXIDINE GLUCONATE 15 ML MOUTHWASH MM SCH ×2 (08:52→20:17)
[2020-06-11] MEDS: ASPIRIN 81 MG TAB.CHEW PO SCH (08:53)
[2020-06-11] MEDS: MULTIVITAMINS,THERAPEUTIC TABLET PO SCH (08:54)
[2020-06-11] MEDS: HEPARIN SODIUM,PORCINE 5,000 UNITS/ML VIAL SQ SCH ×2 (08:55→20:26)
[2020-06-11] MEDS: Z GUARD REMEDY PASTE 57 GM TUBE TOP SCH ×2 (08:56→20:17)
[2020-06-11] MEDS: CLOTRIMAZOLE 1% CREAM 30 GM TUBE TOP SCH ×3 (08:56→17:18)
[2020-06-11] MEDS: AMMONIUM LACTATE 12% LOTION 225 GM BOTTLE TP SCH (08:57)
[2020-06-11] MEDS: FERROUS SULFATE 300 MG/5 ML LIQUID UDC PO SCH ×3 (08:58→17:19)
[2020-06-11] MEDS: FLUTICASONE PROP NASAL SPRAY 16 GM BOTTLE NS SCH (09:00)
--- NOTE | 2020-06-11 11:00 | NUR ---
Post dialysis 2.5l out, reported by Raul diaysis Nurse.
[2020-06-11] MEDS: EPOETIN ALFA-EPBX 20,000 UNIT/ML VIAL SQ SCH (17:17)
[2020-06-11] MEDS: VANCOMYCIN IV 500 MG in IV DEXTROSE 5% 100 ML IV PRN (17:17)
--- NOTE | 2020-06-11 19:30 | NUR ---
Report received. Patient obtunded, doesn't open eyes to name or pain. Trache to ventilator with the same settings. O2 saturations above 95%. shelter monitor: SR rate 80's-90's with rare PACs. SBPs 140's-160's. Qpsg=065.6; Tylenol given via patent NGT. Cooling measures done. Tube feedings in progress at 45 ml/H; no residuals. Turned and repositioned; skin care provided. L leg dressings intact. Both heels offloaded on pillows. Assessment done; refer to ICU flow sheet for complete data. Addendum: 06/11/20 at 2159 by MINERVA WARD RN Amended: Links added. Addendum: 06/11/20 at 2200 by MINERVA WARD RN Amended: Links added.
[2020-06-11] MEDS: MEROPENEM 500 MG in IV NORMAL SALINE 50 ML IV SCH (20:17)
[2020-06-11] MEDS: ATORVASTATIN 40 MG TABLET PO SCH (20:17)
[2020-06-11] MEDS: INSULIN GLARGINE,HUM 300 UNITS/3 ML CARTRIDGE SQ SCH (20:24)
[2020-06-11] MEDS: METOPROLOL TARTRATE 50 MG TABLET PO SCH (20:34)
[2020-06-11] MEDS ORDERED: METOPROLOL TARTRATE 25 MG TABLET GT SCH (21:00)
--- NOTE | 2020-06-11 21:45 | NUR ---
Patient's nelly Ron called; updated of patient's condition. Addendum: 06/11/20 at 2200 by MINERVA WARD RN Amended: Links added.
[2020-06-12] VITALS (27 sets, daily range): BP systolic 119–171; BP diastolic 56–88
--- NOTE | 2020-06-12 01:25 | NUR ---
BPs trending higher; Clonidine 0.1 mg given for BP 166/82. Addendum: 06/12/20 at 0157 by MINERVA WARD RN Amended: Links added.
[2020-06-12] MEDS: CLONIDINE HCL 0.1 MG TABLET PO PRN ×2 (01:26→23:27)
[2020-06-12] MEDS: IV NORMAL SALINE 250 ML IV PRN (03:30)
[2020-06-12] MEDS: ACETAMINOPHEN 325 MG TABLET PO PRN (03:37)
[2020-06-12 04:44] LABS: BASOPHILS % (AUTO) 0.2 % (0.0-2.0); EOSINOPHILS # (AUTO) 0.1 K/uL (0.0-0.7); EOSINOPHILS % (AUTO) 0.3 % (0.0-7.0); HEMATOCRIT 25.6 % (31.2-41.9); HEMOGLOBIN 7.6 g/dL (10.9-14.3); LYMPHOCYTES # (AUTO) 0.9 K/uL (20.0-40.0); LYMPHOCYTES % (AUTO) 4.5 % (20.5-51.5); MEAN CORPUSCULAR HGB CONC 30 g/dL (32.3-35.6); MEAN CORPUSCULAR VOLUME 78.2 fL (75.5-95.3); MONOCYTES # (AUTO) 0.7 K/uL (2.0-10.0); MONOCYTES % (AUTO) 3.9 % (0.0-11.0); NEUTROPHILS # (AUTO) 17.5 K/uL (1.8-8.9); NEUTROPHILS % (AUTO) 91.1 % (38.5-71.5); PLATELET COUNT (AUTO) 352 K/uL (179-408); RED BLOOD CELL COUNT(AUTO) 3.28 MIL/uL (3.63-4.92); WHITE BLOOD COUNT (AUTO) 19.2 K/uL (3.8-11.8)
[2020-06-12 05:01] LABS: CREATININE 5.1 mg/dL (0.6-1.3); MAGNESIUM 2.2 mg/dL (1.8-2.4); PHOSPHOROUS 4.9 mg/dL (2.5-4.9); POTASSIUM 4.2 mmol/L (3.5-5.1)
[2020-06-12] MEDS: BLOOD SUGAR DIAGNOSTIC 1 EACH STRIP VI SCH ×4 (05:27→23:59)
[2020-06-12] MEDS: INSULIN REGULAR, HUMAN 300 UNIT/3 ML VIAL SQ PRN ×3 (05:29→18:15)
[2020-06-12 06:15] LABS: ABG BASE EXCESS 3.1 mmol/L; ABG PCO2 38.6 mmHg (35.0-45.0); ABG PH 7.463 (7.350-7.450); ABG PO2 73.1 mmHg (75.0-100.0); ABG SITE LEFT RADIAL; ABG TOTAL HEMOGLOBIN 11.5 G/dL (12.0-16.0); COHb 1.4 % (0.5-1.5); MetHb 0.3 % (0.0-1.5); O2Hb 93.5 % (94.0-97.0); VENT MODE VENT - A/C; VT, ABG 550 mL
--- NOTE | 2020-06-12 06:30 | NUR ---
Had a moderate semi liquid dark green stools. Cleaned; skin care provided. Stool specimen sent to lab for stool OB. Addendum: 06/12/20 at 0640 by MINERVA WARD RN Amended: Links added.
--- NOTE | 2020-06-12 08:25 | NUR ---
Clarke VAULT MANAGER in the unit to see patient. Informed that patient has been spiking fever and had low grades since yesterday. ID noted and added micafungin last night. Informed me he was able to speak to family (niece) Leydi yesterday and update her on the probability of staying on rn long term care dialysis, he also informed her that patient is still not waking up or responsive and remains in the same state.
[2020-06-12] MEDS: PANTOPRAZOLE ORAL SUSPENSION 40 MG SUSPDR.PKT GT SCH (08:39)
[2020-06-12] MEDS: ASPIRIN 81 MG TAB.CHEW PO SCH (08:39)
[2020-06-12] MEDS: METOPROLOL TARTRATE 50 MG TABLET PO SCH ×2 (08:40→20:24)
[2020-06-12] MEDS: MULTIVITAMINS,THERAPEUTIC TABLET PO SCH (08:40)
[2020-06-12] MEDS: CHLORHEXIDINE GLUCONATE 15 ML MOUTHWASH MM SCH ×2 (08:40→20:23)
[2020-06-12] MEDS: FERROUS SULFATE 300 MG/5 ML LIQUID UDC PO SCH ×3 (08:40→18:02)
[2020-06-12] MEDS: HEPARIN SODIUM,PORCINE 5,000 UNITS/ML VIAL SQ SCH ×2 (08:41→20:42)
[2020-06-12] MEDS: Z GUARD REMEDY PASTE 57 GM TUBE TOP SCH ×2 (08:42→20:44)
[2020-06-12] MEDS: CLOTRIMAZOLE 1% CREAM 30 GM TUBE TOP SCH ×3 (08:44→18:03)
[2020-06-12] MEDS: AMMONIUM LACTATE 12% LOTION 225 GM BOTTLE TP SCH (08:46)
[2020-06-12] MEDS: FLUTICASONE PROP NASAL SPRAY 16 GM BOTTLE NS SCH (09:00)
--- NOTE | 2020-06-12 09:00 | NUR ---
patient unable to follow for use of flonase
[2020-06-12] MEDS ORDERED: AMLODIPINE 5 MG TABLET PO SCH (10:15)
--- NOTE | 2020-06-12 11:15 | NUR ---
Patient taken to CT head scan uneventful on transport.
[2020-06-12] MEDS: AMLODIPINE 5 MG TABLET PO SCH ×2 (11:47→18:02)
[2020-06-12] MEDS: ACETAMINOPHEN 650 MG/20.3 ML LIQUID UDC NG PRN ×2 (11:49→18:16)
[2020-06-12] MEDS: MICAFUNGIN SODIUM 100 MG in IV NORMAL SALINE 100 ML IV SCH (12:50)
--- NOTE | 2020-06-12 16:00 | NUR ---
Doctor Uday in the unit to see patient. reviewed code sheet and neurological status and will review CT scan.
--- NOTE | 2020-06-12 19:00 | NUR ---
Patient received from AM nurse. Obtunded. Sinus Rhythm. Lung sounds clear. Vent to trach settings: AC20 - Fio2:[id number]. LIJ and TEJA Lines clean and intact. TEJA only running TKO. [facility] bed in place. Safety measures in place.
[2020-06-12] MEDS: ATORVASTATIN 40 MG TABLET PO SCH (20:24)
[2020-06-12] MEDS: MEROPENEM 500 MG in IV NORMAL SALINE 50 ML IV SCH (20:37)
[2020-06-12] MEDS: INSULIN GLARGINE,HUM 300 UNITS/3 ML CARTRIDGE SQ SCH (20:43)
--- NOTE | 2020-06-12 21:00 | NUR ---
Upon Neuro assessment - patient is able to move lower extremity (feet/toes) when feet are brushed - but she is not able to move upper extremities (hands/fingers) when the same light touch is applied. Pupils are not equal. Right pupil seems to be smaller (2mm) than the left Pupil (4mm). Gag reflex still present and patient grimaces when orally suctioned.
--- NOTE | 2020-06-12 22:00 | NUR ---
Infectious Disease ADVISER SALES Nera assessed patient. Order to put Ruff Catheter back in patient - possible urinary retention.
--- NOTE | 2020-06-12 23:31 | NUR ---
Patients BP above 150 systolic and has been hovering around that range throughout the night. PRN Clonidine given.
[2020-06-13] VITALS (23 sets, daily range): BP systolic 142–167; BP diastolic 72–103
[2020-06-13] MEDS: INSULIN REGULAR, HUMAN 300 UNIT/3 ML VIAL SQ PRN ×4 (00:01→23:26)
[2020-06-13] MEDS: ACETAMINOPHEN 650 MG/20.3 ML LIQUID UDC NG PRN (00:41)
[2020-06-13 05:16] LABS: *OCCULT BLOOD STOOL POSITIVE (NEGATIVE)
[2020-06-13 05:40] LABS: BASOPHILS # (AUTO) 0.1 K/uL (0.0-8.0); BASOPHILS % (AUTO) 0.3 % (0.0-2.0); EOSINOPHILS # (AUTO) 0.1 K/uL (0.0-0.7); EOSINOPHILS % (AUTO) 0.5 % (0.0-7.0); HEMATOCRIT 28.7 % (31.2-41.9); HEMOGLOBIN 8.2 g/dL (10.9-14.3); LYMPHOCYTES # (AUTO) 0.8 K/uL (20.0-40.0); LYMPHOCYTES % (AUTO) 3.3 % (20.5-51.5); MEAN CORPUSCULAR HGB CONC 29 g/dL (32.3-35.6); MEAN CORPUSCULAR VOLUME 80.1 fL (75.5-95.3); MONOCYTES # (AUTO) 0.8 K/uL (2.0-10.0); MONOCYTES % (AUTO) 3.7 % (0.0-11.0); NEUTROPHILS # (AUTO) 21.1 K/uL (1.8-8.9); NEUTROPHILS % (AUTO) 92.2 % (38.5-71.5); PLATELET COUNT (AUTO) 390 K/uL (179-408); RED BLOOD CELL COUNT(AUTO) 3.59 MIL/uL (3.63-4.92); WHITE BLOOD COUNT (AUTO) 22.8 K/uL (3.8-11.8)
[2020-06-13 05:45] LABS: CREATININE 5.9 mg/dL (0.6-1.3); POTASSIUM 4.3 mmol/L (3.5-5.1)
[2020-06-13 05:50] LABS: MAGNESIUM 2.6 mg/dL (1.8-2.4); PHOSPHOROUS 5.3 mg/dL (2.5-4.9)
[2020-06-13] MEDS: BLOOD SUGAR DIAGNOSTIC 1 EACH STRIP VI SCH ×4 (05:50→23:25)
--- NOTE | 2020-06-13 05:57 | NUR ---
Patient sustained hypertension throughout shift. Never dropping lower than 130 systolic. Will endorse possible increase to Norvasc (currently 5mg) or Lopressor (currently 50mg BID). Ruff catheter inserted at 0230 - 18fr - secured. Patient is afebrile as of 0600. Temp taken orally & axillary: 98.4 & 98.5. Wound care completed - patient cleaned.
[2020-06-13] MEDS: IV NORMAL SALINE 250 ML IV PRN (06:32)
--- NOTE | 2020-06-13 07:20 | NUR ---
Received pt. on vent (trache to vent shiley 6) A/C 20, tv 550, Peep +12, FIO2 60%. saturation within desire limits. No distress noted. Ng with feeding to be resumed. Ruff to gravity. No skin breakdown noted, will continue with care plan.
[2020-06-13] MEDS ORDERED: TRAMADOL HCL 50 MG TABLET PO PRN (07:41)
[2020-06-13 07:59] LABS: ABG BASE EXCESS 1.9 mmol/L; ABG HCO3 25.8 mmol/L; ABG PCO2 37.6 mmHg (35.0-45.0); ABG PH 7.455 (7.350-7.450); ABG PO2 72.9 mmHg (75.0-100.0); ABG SITE LEFT RADIAL; ABG TOTAL HEMOGLOBIN 9.7 G/dL (12.0-16.0); COHb 0.8 % (0.5-1.5); MetHb 0.4 % (0.0-1.5); O2Hb 93.1 % (94.0-97.0); VENT MODE VENT - A/C; VT, ABG 550 mL
[2020-06-13] MEDS: CHLORHEXIDINE GLUCONATE 15 ML MOUTHWASH MM SCH ×2 (08:01→20:26)
[2020-06-13] MEDS: FERROUS SULFATE 300 MG/5 ML LIQUID UDC PO SCH ×3 (08:01→16:00)
[2020-06-13] MEDS: PANTOPRAZOLE ORAL SUSPENSION 40 MG SUSPDR.PKT GT SCH (08:01)
[2020-06-13] MEDS: MULTIVITAMINS,THERAPEUTIC TABLET PO SCH (08:01)
[2020-06-13] MEDS: ASPIRIN 81 MG TAB.CHEW GT SCH (08:02)
[2020-06-13] MEDS: METOPROLOL TARTRATE 50 MG TABLET PO SCH ×2 (08:06→20:27)
[2020-06-13] MEDS: AMLODIPINE 5 MG TABLET PO SCH ×2 (08:06→16:01)
[2020-06-13] MEDS: CLOTRIMAZOLE 1% CREAM 30 GM TUBE TOP SCH ×3 (08:07→16:01)
[2020-06-13] MEDS: HEPARIN SODIUM,PORCINE 5,000 UNITS/ML VIAL SQ SCH ×2 (08:11→20:27)
--- NOTE | 2020-06-13 08:11 | NUR ---
PT RECEIVED TRACH TO VENT WITH A SHILEY 6 XLT-D WITH VENT SETTINGS ON AC 20/VT 550/60% FIO2/ +12 PEEP. TRACH IS PROPERLY SECURED AND INTATC. AIRWAY PATENT. PT HAD SMALL AMOUNT OF OFF WHITE SECRETIONS. PT APPEARS COMFORTABLE TOLERATING CURRENT VENT SETTINGS FINE WITHOUT DISTRESS. ROUTINE ABG DONE AND VIEWABLE ON [email or web address]. RESULTS NON CRITICAL. WILL CONTINUE TO MONITOR
[2020-06-13] MEDS: FLUTICASONE PROP NASAL SPRAY 16 GM BOTTLE NS SCH (08:12)
[2020-06-13] MEDS: Z GUARD REMEDY PASTE 57 GM TUBE TOP SCH ×2 (08:14→20:28)
[2020-06-13] MEDS: AMMONIUM LACTATE 12% LOTION 225 GM BOTTLE TP SCH (08:15)
[2020-06-13] MEDS: NEPRO 1000 ML NG PRN (08:37)
--- NOTE | 2020-06-13 10:03 | NUR ---
Patient seen by attending Zach Queen who updated pt's niece over the phone. As stated by him plans for HD. today.
--- NOTE | 2020-06-13 11:00 | NUR ---
Pulmonary services, Dr. Powell in the unit to see and examine pt. report given orders to continue with care plan received. As stated by Md. Peep is not titratable and RT staff should be made aware of the order".
[2020-06-13] MEDS: MICAFUNGIN SODIUM 100 MG in IV NORMAL SALINE 100 ML IV SCH (13:45)
[2020-06-13] MEDS ORDERED: EPOETIN ALFA-EPBX 20,000 UNIT/ML VIAL SQ SCH ×2 (14:00→16:00)
[2020-06-13] MEDS ORDERED: EPOETIN ALFA-EPBX 10,000 UNIT/ML VIAL SQ SCH (14:00)
--- NOTE | 2020-06-13 14:23 | NUR ---
Hemodialysis in progress.
[2020-06-13] MEDS ORDERED: VANCOMYCIN IV 500 MG in IV DEXTROSE 5% 100 ML IV ONE (17:00)
--- NOTE | 2020-06-13 18:56 | NUR ---
Left pt. in bed resting no distress. Remains on ventilator with saturation above 95% gas engine mechanic aware of current settings. Remains in SR with sbp well controlled. Tolerating NG feeding well with no residuals for bm see I&O. Ruff to gravity with a total of 120. HD output of 2L. IV patent. No skin breakdown. Will continue with care plan.
--- NOTE | 2020-06-13 19:05 | NUR ---
received patient , only responds to deep pain , sluggish eye opening , on vent setting of shiley # 6 xlt , ac 20 tv 550 p 10 fio2 60 % , ngt running at 45 ml , no residual noted , placement check and verified , guerrero and picc line intact , dressing intact on left leg
[2020-06-13] MEDS: MEROPENEM 500 MG in IV NORMAL SALINE 50 ML IV SCH (20:22)
[2020-06-13] MEDS: ATORVASTATIN 40 MG TABLET PO SCH (20:26)
[2020-06-13] MEDS: INSULIN GLARGINE,HUM 300 UNITS/3 ML CARTRIDGE SQ SCH (20:54)
[2020-06-13] MEDS: CLONIDINE HCL 0.1 MG TABLET PO PRN (20:57)
[2020-06-13] MEDS ORDERED: AMANTADINE HCL 100 MG CAPSULE PO SCH (21:00)
--- NOTE | 2020-06-13 21:27 | NUR ---
bibiana with the family member magaly, update given on patient's condition today
--- NOTE | 2020-06-13 22:00 | NUR ---
update given on nelly will
[2020-06-14] VITALS (23 sets, daily range): BP systolic 125–149; BP diastolic 64–79
[2020-06-14] MEDS: IV NORMAL SALINE 250 ML IV PRN (03:00)
[2020-06-14 04:54] LABS: BASOPHILS # (AUTO) 0.1 K/uL (0.0-8.0); BASOPHILS % (AUTO) 0.5 % (0.0-2.0); EOSINOPHILS # (AUTO) 0.1 K/uL (0.0-0.7); EOSINOPHILS % (AUTO) 0.7 % (0.0-7.0); HEMATOCRIT 28.3 % (31.2-41.9); HEMOGLOBIN 8.4 g/dL (10.9-14.3); LYMPHOCYTES # (AUTO) 1.2 K/uL (20.0-40.0); LYMPHOCYTES % (AUTO) 5.4 % (20.5-51.5); MEAN CORPUSCULAR HEMOGLOBIN 23.5 uug (24.7-32.8); MEAN CORPUSCULAR HGB CONC 30 g/dL (32.3-35.6); MEAN CORPUSCULAR VOLUME 79.5 fL (75.5-95.3); MONOCYTES # (AUTO) 1.1 K/uL (2.0-10.0); MONOCYTES % (AUTO) 5.1 % (0.0-11.0); NEUTROPHILS # (AUTO) 19.2 K/uL (1.8-8.9); NEUTROPHILS % (AUTO) 88.3 % (38.5-71.5); PLATELET COUNT (AUTO) 360 K/uL (179-408); RED BLOOD CELL COUNT(AUTO) 3.57 MIL/uL (3.63-4.92); WHITE BLOOD COUNT (AUTO) 21.8 K/uL (3.8-11.8)
[2020-06-14 05:03] LABS: CREATININE 5.1 mg/dL (0.6-1.3); MAGNESIUM 2.2 mg/dL (1.8-2.4); PHOSPHOROUS 4.4 mg/dL (2.5-4.9); POTASSIUM 4.5 mmol/L (3.5-5.1)
--- NOTE | 2020-06-14 06:00 | NUR ---
patient has spontaneous eye opening to deep pain , , the same vent setting , ngt intact placement , no residual noted , low grade fever of 99.0 , sr 86 sbp 137 / 70 98 % rr 21
[2020-06-14] MEDS: BLOOD SUGAR DIAGNOSTIC 1 EACH STRIP VI SCH ×3 (06:32→19:19)
[2020-06-14] MEDS: INSULIN REGULAR, HUMAN 300 UNIT/3 ML VIAL SQ PRN (06:33)
--- NOTE | 2020-06-14 07:20 | NUR ---
Received pt resting on ventilator with no vent changes for the last 12hrs. NGT to be resume as recommended. oral temp of 100.4, prns will be administered. guerrero to gravity. Hemodynamically stable As per report pt. received sbp prn. see emar. Will continue with care plan.
--- NOTE | 2020-06-14 07:47 | NUR ---
Pulmonary services, Dr. Nicole in the unit to see and examine pt. report given. See order hx.
[2020-06-14] MEDS: CHLORHEXIDINE GLUCONATE 15 ML MOUTHWASH MM SCH ×2 (08:14→20:39)
[2020-06-14] MEDS: ACETAMINOPHEN 650 MG/20.3 ML LIQUID UDC NG PRN ×3 (08:14→20:38)
[2020-06-14] MEDS: FERROUS SULFATE 300 MG/5 ML LIQUID UDC PO SCH ×3 (08:14→16:40)
[2020-06-14] MEDS: MODAFINIL 100 MG TABLET PO SCH (08:14)
[2020-06-14] MEDS: MULTIVITAMINS,THERAPEUTIC TABLET PO SCH (08:15)
[2020-06-14] MEDS: AMLODIPINE 5 MG TABLET PO SCH ×2 (08:15→16:40)
[2020-06-14] MEDS: ASPIRIN 81 MG TAB.CHEW GT SCH (08:15)
[2020-06-14] MEDS: PANTOPRAZOLE ORAL SUSPENSION 40 MG SUSPDR.PKT GT SCH (08:15)
[2020-06-14] MEDS: METOPROLOL TARTRATE 50 MG TABLET PO SCH ×2 (08:16→20:39)
[2020-06-14] MEDS: HEPARIN SODIUM,PORCINE 5,000 UNITS/ML VIAL SQ SCH ×2 (08:17→20:39)
[2020-06-14] MEDS: FLUTICASONE PROP NASAL SPRAY 16 GM BOTTLE NS SCH (08:17)
[2020-06-14] MEDS: CLOTRIMAZOLE 1% CREAM 30 GM TUBE TOP SCH ×3 (08:18→16:37)
[2020-06-14] MEDS: Z GUARD REMEDY PASTE 57 GM TUBE TOP SCH ×2 (08:18→21:06)
[2020-06-14] MEDS: AMMONIUM LACTATE 12% LOTION 225 GM BOTTLE TP SCH (08:20)
[2020-06-14] MEDS ORDERED: MEROPENEM 0.5 G in IV NORMAL SALINE 50 ML IV PRN (09:00)
[2020-06-14] MEDS ORDERED: AMANTADINE HCL 100 MG CAPSULE PO SCH (09:00)
[2020-06-14] MEDS: AMANTADINE HCL 100 MG CAPSULE PO SCH (09:04)
--- NOTE | 2020-06-14 09:20 | NUR ---
Cardiology services, Dr. Ward in the unit to see and examine pt. report given. Orders to continue with care plan received.
[2020-06-14] MEDS: NEPRO 1000 ML NG PRN (09:41)
--- NOTE | 2020-06-14 10:00 | NUR ---
Attending physician Dr. Paris in the unit to follow up on pt. and as stated "I'll call family for update"
[2020-06-14] MEDS: MICAFUNGIN SODIUM 100 MG in IV NORMAL SALINE 100 ML IV SCH (12:22)
[2020-06-14] MEDS ORDERED: EPOETIN ALFA-EPBX 10,000 UNIT/ML VIAL SQ SCH (14:00)
[2020-06-14] MEDS ORDERED: EPOETIN ALFA-EPBX 20,000 UNIT/ML VIAL SQ SCH (14:00)
--- NOTE | 2020-06-14 16:03 | NUR ---
pt. seen by neurologist, report given.
--- NOTE | 2020-06-14 18:45 | NUR ---
Left pt resting on ventilator, no vent changes throughout shift. Hemodynamically stable sbp within desired limits.Tolerating NGT with no residual, no n.v.d.. pt. febrile during shift and treated as order. guerrero to gravity. received. No injury sustained safety precautions observed at all times, will continue with care plan.
[2020-06-14] MEDS: MEROPENEM 500 MG in IV NORMAL SALINE 50 ML IV SCH (20:38)
[2020-06-14] MEDS: ATORVASTATIN 40 MG TABLET PO SCH (20:38)
[2020-06-14] MEDS: INSULIN GLARGINE,HUM 300 UNITS/3 ML CARTRIDGE SQ SCH (20:40)
[2020-06-14] MEDS ORDERED: VANCOMYCIN FOR PO/GT/NG USE PO SCH (21:30)
[2020-06-15] VITALS (24 sets, daily range): BP systolic 125–157; BP diastolic 69–81
[2020-06-15] MEDS: BLOOD SUGAR DIAGNOSTIC 1 EACH STRIP VI SCH ×4 (00:37→17:27)
--- NOTE | 2020-06-15 03:30 | NUR ---
Patient suddenly became tachycardic on the monitor @0306 before returning to a normal sinus rhythm. Investigating the event showed Mobitz Type I clearly seen on Lead V but not easily seen on other leads. Once QRS was dropped she entered into a 121 BPM tachycardia for 20 seconds before returning to a normal sinus rhythm. Following this episode, the patient had a few instances of ventricular couplets. Called Cardiology services and spoke with Dr. Suarez. Report of the incident given, and he said that as long as it is not sustained it is fine. No new orders.
[2020-06-15 05:01] LABS: BASOPHILS # (AUTO) 0.1 K/uL (0.0-8.0); BASOPHILS % (AUTO) 0.5 % (0.0-2.0); EOSINOPHILS # (AUTO) 0.2 K/uL (0.0-0.7); EOSINOPHILS % (AUTO) 0.7 % (0.0-7.0); HEMATOCRIT 30.2 % (31.2-41.9); HEMOGLOBIN 8.7 g/dL (10.9-14.3); LYMPHOCYTES # (AUTO) 1.4 K/uL (20.0-40.0); LYMPHOCYTES % (AUTO) 6.4 % (20.5-51.5); MEAN CORPUSCULAR HEMOGLOBIN 23.1 uug (24.7-32.8); MEAN CORPUSCULAR HGB CONC 29 g/dL (32.3-35.6); MEAN CORPUSCULAR VOLUME 80.5 fL (75.5-95.3); MONOCYTES # (AUTO) 1.2 K/uL (2.0-10.0); MONOCYTES % (AUTO) 5.4 % (0.0-11.0); NEUTROPHILS # (AUTO) 19.3 K/uL (1.8-8.9); PLATELET COUNT (AUTO) 375 K/uL (179-408); RED BLOOD CELL COUNT(AUTO) 3.75 MIL/uL (3.63-4.92); WHITE BLOOD COUNT (AUTO) 22.1 K/uL (3.8-11.8)
[2020-06-15 05:04] LABS: CREATININE 6.1 mg/dL (0.6-1.3); MAGNESIUM 2.6 mg/dL (1.8-2.4); PHOSPHOROUS 5.7 mg/dL (2.5-4.9)
[2020-06-15] MEDS: METRONIDAZOLE 500 MG TABLET PO SCH ×3 (05:54→21:48)
[2020-06-15 05:59] LABS: ABG BASE EXCESS 1.8 mmol/L; ABG HCO3 25.6 mmol/L; ABG PH 7.458 (7.350-7.450); ABG PO2 71.6 mmHg (75.0-100.0); ABG SITE RIGHT RADIAL; ABG TOTAL HEMOGLOBIN 9.9 G/dL (12.0-16.0); COHb 0.9 % (0.5-1.5); MetHb 0.3 % (0.0-1.5); O2Hb 92.8 % (94.0-97.0); VENT MODE VENT - A/C; VT, ABG 550 mL
[2020-06-15] MEDS: IV NORMAL SALINE 250 ML IV PRN (06:01)
--- NOTE | 2020-06-15 07:20 | NUR ---
Received pt. on ventilator saturation within normal limits, fever of 100.4 at this time pt. placed on cooling blanket with continuous temp monitoring. NG-T on hold and to be resumed as ordered. Ruff to gravity, Hemodynamically stable sbp within normal. Upon assessment no skin breakdown noticed. will continue with care plan.
--- NOTE | 2020-06-15 07:59 | NUR ---
Pulmonary services, Dr. Nicole in the unit to see and examine pt. report given orders to continue with care plan received, see order hx.
[2020-06-15] MEDS: FLUTICASONE PROP NASAL SPRAY 16 GM BOTTLE NS SCH (08:04)
[2020-06-15] MEDS: FERROUS SULFATE 300 MG/5 ML LIQUID UDC PO SCH ×3 (08:04→17:28)
[2020-06-15] MEDS: CHLORHEXIDINE GLUCONATE 15 ML MOUTHWASH MM SCH ×2 (08:04→20:14)
[2020-06-15] MEDS: ASPIRIN 81 MG TAB.CHEW GT SCH (08:04)
[2020-06-15] MEDS: PANTOPRAZOLE ORAL SUSPENSION 40 MG SUSPDR.PKT GT SCH (08:04)
[2020-06-15] MEDS: METOPROLOL TARTRATE 50 MG TABLET PO SCH ×2 (08:04→20:15)
[2020-06-15] MEDS: MODAFINIL 100 MG TABLET PO SCH (08:05)
[2020-06-15] MEDS: AMLODIPINE 5 MG TABLET PO SCH ×2 (08:05→17:29)
[2020-06-15] MEDS: MULTIVITAMINS,THERAPEUTIC TABLET PO SCH (08:05)
[2020-06-15] MEDS: CLOTRIMAZOLE 1% CREAM 30 GM TUBE TOP SCH ×3 (08:06→17:27)
[2020-06-15] MEDS: Z GUARD REMEDY PASTE 57 GM TUBE TOP SCH ×2 (08:06→20:20)
[2020-06-15] MEDS: HEPARIN SODIUM,PORCINE 5,000 UNITS/ML VIAL SQ SCH ×2 (08:08→20:16)
--- NOTE | 2020-06-15 08:16 | NUR ---
Cardiology services, Dr. Ward in the unit to see and examine pt. report given, orders to continue with care plan received.
--- NOTE | 2020-06-15 08:20 | NUR ---
RT Tres at bedside and VENT SETTINGS CHANGED TO A/C 16, PEEP +8. Pt's saturation of 95% no distress. Addendum: 06/15/20 at 0826 by LITA GARCIA RN vent change as ordered.
[2020-06-15] MEDS: AMMONIUM LACTATE 12% LOTION 225 GM BOTTLE TP SCH (08:29)
[2020-06-15] MEDS: ACETAMINOPHEN 650 MG/20.3 ML LIQUID UDC NG PRN ×2 (08:31→20:20)
[2020-06-15] MEDS: NEPRO 1000 ML NG PRN (08:34)
--- NOTE | 2020-06-15 08:40 | NUR ---
A call from Dr. Paris to request accommodations and have her visit pt. Knocker Out in the unit at this time and she was informed. permission granted Dr. bahena.
--- NOTE | 2020-06-15 08:53 | NUR ---
A call to Ariadne to informed her she can come and visit her family member. Addendum: 06/15/20 at 0854 by LITA GARCIA RN She was also informed that Dr. Paris is awaiting to meet with her after pt's visit.
--- NOTE | 2020-06-15 09:39 | NUR ---
Delvis Ariadne pt's niece in the unit to visit, She was updated and taken to pt's bedside following safety contact precautions. Dr. Paris informed as requested. Awaiting 's arrival.
--- NOTE | 2020-06-15 09:56 | NUR ---
Attending physician at bedside to meet with Ms. Ron.
--- NOTE | 2020-06-15 11:50 | NUR ---
Hemodialysis R.N. in the unit to dialyzed pt.
[2020-06-15] MEDS: INSULIN REGULAR, HUMAN 300 UNIT/3 ML VIAL SQ PRN ×2 (11:54→17:30)
--- NOTE | 2020-06-15 13:59 | NUR ---
HD finished at this time and as reported 2Liters out.
[2020-06-15] MEDS: MICAFUNGIN SODIUM 100 MG in IV NORMAL SALINE 100 ML IV SCH (14:07)
[2020-06-15] MEDS: VANCOMYCIN IV 500 MG in IV DEXTROSE 5% 100 ML IV PRN (14:29)
[2020-06-15] MEDS: EPOETIN ALFA-EPBX 10,000 UNIT/ML VIAL IV PRN (15:13)
[2020-06-15 16:24] LABS: HEPATITIS A AB, IgM Negative; HEPATITIS Be ANTIGEN Negative
[2020-06-15 16:25] LABS: HEPATITIS B SURFACE AB Reactive
[2020-06-15 16:32] LABS: HEPATITIS A AB, IgM Negative; HEPATITIS A AB, TOTAL POSITIVE
[2020-06-15 16:34] LABS: HEPATITIS B SURFACE AG Negative; HEPATITIS Be ANTIGEN Negative
[2020-06-15 16:35] LABS: HEPATITIS B SURFACE AB REACTIVE
--- NOTE | 2020-06-15 18:43 | NUR ---
Pt.Neuro-lizama unchanged. Remains on ventilator tolerating vent changes earlier in the shift, with saturation within desire limits. Hemodynamically stable with sbp within normal. Remains on cooling blanket due to runs of fever during shift. Tolerating NG feeding with no residuals. guerrero to gravity tolerated HD 2L out. PIcc line to RUE patent. Over all remains free from HAPS. Safety precautions observed at all times, will continue with care plan.
--- NOTE | 2020-06-15 19:00 | NUR ---
Received patient from AM nurse. Neuro status similar to previous nights - eyes opening more spontaneously than before. Lines patent and dressing intact. On cooling blanket due to fevers - Temp 99.3 at the moment. VSS (slightly hypertensive). feeding running at 45cc/hr. Vent settings: [id number]:60%. Safety measures in place.
[2020-06-15] MEDS: ATORVASTATIN 40 MG TABLET PO SCH (20:14)
[2020-06-15] MEDS: MEROPENEM 500 MG in IV NORMAL SALINE 50 ML IV SCH (20:14)
[2020-06-15] MEDS: INSULIN GLARGINE,HUM 300 UNITS/3 ML CARTRIDGE SQ SCH (20:15)
[2020-06-16] VITALS (25 sets, daily range): BP systolic 116–164; BP diastolic 57–92
[2020-06-16] MEDS: BLOOD SUGAR DIAGNOSTIC 1 EACH STRIP VI SCH ×5 (00:08→23:50)
[2020-06-16] MEDS: INSULIN REGULAR, HUMAN 300 UNIT/3 ML VIAL SQ PRN ×2 (00:10→05:58)
[2020-06-16] MEDS: CLONIDINE HCL 0.1 MG TABLET PO PRN (00:23)
--- NOTE | 2020-06-16 00:23 | NUR ---
Clonidine 0.1 mg given via patent NGT for BP 164/74. Addendum: 06/16/20 at 0550 by MINERVA WARD RN Amended: Links added.
--- NOTE | 2020-06-16 03:28 | NUR ---
PATIENT ON CONT GUZMAN VENT WITH SHILEY # [address] AND SECURED, WITH VENT SETTINGS, A/C 16, VT 500ML, PEEP 8, FIO2 @ 60%, PT DOES ASSIST AT TIMES, WITH GOOD COUGH EFFORT, SUCTION, CHECK CUFF, NO VENT CHANGES MADE, ALL VENT ALARMS GOOD, ABG IN AM BEFORE 0700, CHANGE Gabriel TRUJILLO RCP Addendum: 06/16/20 at 0330 by YOVANY SMYTH RT Amended: Links added.
[2020-06-16 04:51] LABS: BASOPHILS # (AUTO) 0.1 K/uL (0.0-8.0); BASOPHILS % (AUTO) 0.5 % (0.0-2.0); EOSINOPHILS # (AUTO) 0.1 K/uL (0.0-0.7); EOSINOPHILS % (AUTO) 0.4 % (0.0-7.0); HEMATOCRIT 31.1 % (31.2-41.9); HEMOGLOBIN 8.7 g/dL (10.9-14.3); LYMPHOCYTES # (AUTO) 0.9 K/uL (20.0-40.0); LYMPHOCYTES % (AUTO) 4.7 % (20.5-51.5); MEAN CORPUSCULAR HEMOGLOBIN 22.8 uug (24.7-32.8); MEAN CORPUSCULAR HGB CONC 28 g/dL (32.3-35.6); MEAN CORPUSCULAR VOLUME 81.1 fL (75.5-95.3); MONOCYTES % (AUTO) 4.8 % (0.0-11.0); NEUTROPHILS % (AUTO) 89.6 % (38.5-71.5); PLATELET COUNT (AUTO) 287 K/uL (179-408); RED BLOOD CELL COUNT(AUTO) 3.84 MIL/uL (3.63-4.92)
[2020-06-16 05:01] LABS: CREATININE 5.4 mg/dL (0.6-1.3); MAGNESIUM 2.4 mg/dL (1.8-2.4); PHOSPHOROUS 6.5 mg/dL (2.5-4.9)
[2020-06-16] MEDS: IV NORMAL SALINE 250 ML IV PRN (05:01)
[2020-06-16] MEDS: METRONIDAZOLE 500 MG TABLET PO SCH ×3 (05:24→21:42)
[2020-06-16 05:50] LABS: ABG BASE EXCESS 0.3 mmol/L; ABG HCO3 24.2 mmol/L; ABG PCO2 36.2 mmHg (35.0-45.0); ABG PH 7.443 (7.350-7.450); ABG PO2 83.5 mmHg (75.0-100.0); ABG SITE LEFT RADIAL; ABG TOTAL HEMOGLOBIN 9.6 G/dL (12.0-16.0); COHb 1.1 % (0.5-1.5); MetHb 0.4 % (0.0-1.5); O2Hb 94.5 % (94.0-97.0); VENT MODE VENT - A/C; VT, ABG 550 mL
--- NOTE | 2020-06-16 08:05 | NUR ---
Dr Nicole made aware that FIO2 was decreased to 50% patient was saturating 99% and ABG had normal values with FIO2 of 60%. Noted that patient is resistant to merrem per respiratory culture, changes were differed to ID when round.
--- NOTE | 2020-06-16 08:05 | NUR ---
Dr. Nicole in the unit to see and assess pt. full report given. see order hx.
[2020-06-16] MEDS: FERROUS SULFATE 300 MG/5 ML LIQUID UDC PO SCH ×3 (08:15→16:25)
[2020-06-16] MEDS: CHLORHEXIDINE GLUCONATE 15 ML MOUTHWASH MM SCH ×2 (08:15→20:16)
[2020-06-16] MEDS: ASPIRIN 81 MG TAB.CHEW GT SCH (08:15)
[2020-06-16] MEDS: HEPARIN SODIUM,PORCINE 5,000 UNITS/ML VIAL SQ SCH ×2 (08:15→20:17)
[2020-06-16] MEDS: AMLODIPINE 5 MG TABLET PO SCH ×2 (08:15→16:25)
[2020-06-16] MEDS: PANTOPRAZOLE ORAL SUSPENSION 40 MG SUSPDR.PKT GT SCH (08:15)
[2020-06-16] MEDS: METOPROLOL TARTRATE 50 MG TABLET PO SCH ×2 (08:16→20:16)
[2020-06-16] MEDS: MULTIVITAMINS,THERAPEUTIC TABLET PO SCH (08:16)
[2020-06-16] MEDS: MODAFINIL 100 MG TABLET PO SCH (08:16)
[2020-06-16] MEDS: CLOTRIMAZOLE 1% CREAM 30 GM TUBE TOP SCH ×3 (08:18→16:30)
[2020-06-16] MEDS: Z GUARD REMEDY PASTE 57 GM TUBE TOP SCH ×2 (08:18→20:07)
[2020-06-16] MEDS: FLUTICASONE PROP NASAL SPRAY 16 GM BOTTLE NS SCH (08:19)
[2020-06-16] MEDS: AMMONIUM LACTATE 12% LOTION 225 GM BOTTLE TP SCH (08:19)
[2020-06-16] MEDS: NEPRO 1000 ML NG PRN (08:20)
--- NOTE | 2020-06-16 09:08 | NUR ---
EXPLOSIVE ORDNANCE HANDLER Isra Trujillo in the unit to see and assess pt. full report given.
--- NOTE | 2020-06-16 09:26 | NUR ---
Dr. Ward in the unit to see and assess pt. full report given. Informed MD that last night pt had elevated BP and was given PRN clonidine and asked if he wanted to make adjustments to BP meds. No changes for now per MD as pt's BP since morning has been in the 130s.
--- NOTE | 2020-06-16 10:00 | NUR ---
changed FIo2 to 55% patient saturating 90-91% orders are to keep above 94% and per Dr Nicole orders RT decreased peep to 7.
[2020-06-16] MEDS: MICAFUNGIN SODIUM 100 MG in IV NORMAL SALINE 100 ML IV SCH (12:29)
[2020-06-16] MEDS ORDERED: GENTAMICIN SULFATE IV ONE (13:00)
[2020-06-16] MEDS ORDERED: DEXTROSE 5% IV ONE (13:00)
[2020-06-16] MEDS: ACETAMINOPHEN 650 MG/20.3 ML LIQUID UDC NG PRN (16:25)
--- NOTE | 2020-06-16 16:45 | NUR ---
Neuro Dr. Thompson in the unit to see and assess pt. full report given.
--- NOTE | 2020-06-16 18:20 | NUR ---
per neuro he informed family (nelly Holley) that will give until Sunday to see if patient wakes up at all to move forward on any decisions by nelly Holley.
--- NOTE | 2020-06-16 19:30 | NUR ---
Report received. Patient with trache to vent settings: AC=16, FIO2=55%, SY=327 ml and PEEP=7cm. O2 saturations above 94%. Eyes open, doesn't track. With good cough and gag reflexes. Cleaned for moderate liquid dark brown stools; skin care provided. On the [facility] bed. Assessment done; see ICU flow sheet for completed data. Addendum: 06/16/20 at 2123 by MINERVA WARD RN Amended: Links added.
[2020-06-16] MEDS: ATORVASTATIN 40 MG TABLET PO SCH (20:16)
--- NOTE | 2020-06-16 20:35 | NUR ---
Call placed to Dr. Gonzales's exchange re: accucheck=94 and Lantus dose=50 units at 2100. Patient on continuous NGT feedings at 45 ml/H.
[2020-06-16] MEDS: INSULIN GLARGINE,HUM 300 UNITS/3 ML CARTRIDGE SQ SCH (21:00)
--- NOTE | 2020-06-16 21:10 | NUR ---
2nd call placed to Dr. Gonzales re: Brian dose; awaiting call back. Patient's nelly Ron called; updated of patient's condition. Addendum: 06/16/20 at 2112 by MINERVA WARD RN Amended: Links added. Addendum: 06/16/20 at 2123 by MINERVA WARD RN Amended: Links added.
--- NOTE | 2020-06-16 21:13 | NUR ---
Dr. Gonzales called back; order received to give 20 units of Lantus tonight instead of 50 units.
[2020-06-16] MEDS ORDERED: INSULIN GLARGINE,HUM 300 UNITS/3 ML CARTRIDGE SQ ONE (21:15)
[2020-06-17] VITALS (24 sets, daily range): BP systolic 127–173; BP diastolic 69–94
[2020-06-17] MEDS: IV NORMAL SALINE 250 ML IV PRN (03:42)
[2020-06-17 04:06] LABS: HEPATITIS B SURFACE AB Reactive (.); HEPATITIS B SURFACE AG Negative (Negative)
[2020-06-17] MEDS: METRONIDAZOLE 500 MG TABLET PO SCH (05:00)
[2020-06-17 05:29] LABS: BASOPHILS # (AUTO) 0.1 K/uL (0.0-8.0); BASOPHILS % (AUTO) 0.6 % (0.0-2.0); EOSINOPHILS # (AUTO) 0.1 K/uL (0.0-0.7); EOSINOPHILS % (AUTO) 0.6 % (0.0-7.0); HEMATOCRIT 30.9 % (31.2-41.9); HEMOGLOBIN 8.8 g/dL (10.9-14.3); LYMPHOCYTES # (AUTO) 1.1 K/uL (20.0-40.0); LYMPHOCYTES % (AUTO) 6.3 % (20.5-51.5); MEAN CORPUSCULAR HEMOGLOBIN 22.9 uug (24.7-32.8); MEAN CORPUSCULAR HGB CONC 28 g/dL (32.3-35.6); MEAN CORPUSCULAR VOLUME 80.5 fL (75.5-95.3); MONOCYTES # (AUTO) 0.9 K/uL (2.0-10.0); MONOCYTES % (AUTO) 5.1 % (0.0-11.0); NEUTROPHILS # (AUTO) 15.7 K/uL (1.8-8.9); NEUTROPHILS % (AUTO) 87.4 % (38.5-71.5); PLATELET COUNT (AUTO) 319 K/uL (179-408); RED BLOOD CELL COUNT(AUTO) 3.83 MIL/uL (3.63-4.92)
[2020-06-17 05:43] LABS: CREATININE 6.3 mg/dL (0.6-1.3); MAGNESIUM 2.5 mg/dL (1.8-2.4); PHOSPHOROUS 7.3 mg/dL (2.5-4.9); POTASSIUM 5.1 mmol/L (3.5-5.1)
[2020-06-17] MEDS: BLOOD SUGAR DIAGNOSTIC 1 EACH STRIP VI SCH ×4 (05:54→23:46)
--- NOTE | 2020-06-17 06:10 | NUR ---
Condition unchanged. O2 saturations above 94% on FIO2=55%. VS stable. Tolerating NGT feedings well; off 7689-6000.
[2020-06-17 06:30] LABS: ABG BASE EXCESS 0.5 mmol/L; ABG HCO3 24.7 mmol/L; ABG PCO2 37.7 mmHg (35.0-45.0); ABG PH 7.434 (7.350-7.450); ABG PO2 67.4 mmHg (75.0-100.0); ABG SITE RIGHT RADIAL; ABG TOTAL HEMOGLOBIN 9.8 G/dL (12.0-16.0); MetHb 0.2 % (0.0-1.5); O2Hb 91.1 % (94.0-97.0); VENT MODE VENT - A/C; VT, ABG 550 mL
[2020-06-17 06:39] LABS: NEUTROPHILS % (MANUAL) 87 % (42-75)
[2020-06-17 06:40] LABS: LYMPHOCYTES % (MANUAL) 8 % (20-40); MONOCYTES % (MANUAL) 5 % (2-10)
--- NOTE | 2020-06-17 07:37 | NUR ---
Dr. Ward in the unit to see and assess pt. full report given
--- NOTE | 2020-06-17 07:49 | NUR ---
Dr. Nicole in the unit to see and assess pt. full report given. see order hx
[2020-06-17] MEDS: FERROUS SULFATE 300 MG/5 ML LIQUID UDC PO SCH ×3 (08:00→16:54)
[2020-06-17] MEDS: CHLORHEXIDINE GLUCONATE 15 ML MOUTHWASH MM SCH ×2 (08:00→20:09)
[2020-06-17] MEDS: NEPRO 1000 ML NG PRN (08:00)
[2020-06-17] MEDS: MULTIVITAMINS,THERAPEUTIC TABLET PO SCH (08:01)
[2020-06-17] MEDS: AMLODIPINE 5 MG TABLET PO SCH ×2 (08:01→16:54)
[2020-06-17] MEDS: MODAFINIL 100 MG TABLET PO SCH (08:01)
[2020-06-17] MEDS: METOPROLOL TARTRATE 50 MG TABLET PO SCH ×2 (08:01→20:09)
[2020-06-17] MEDS: ASPIRIN 81 MG TAB.CHEW GT SCH (08:01)
[2020-06-17] MEDS: ERGOCALCIFEROL 50,000 UNIT CAPSULE PO SCH (08:02)
[2020-06-17] MEDS: PANTOPRAZOLE ORAL SUSPENSION 40 MG SUSPDR.PKT GT SCH (08:02)
[2020-06-17] MEDS: HEPARIN SODIUM,PORCINE 5,000 UNITS/ML VIAL SQ SCH ×2 (08:02→20:16)
[2020-06-17] MEDS: CLOTRIMAZOLE 1% CREAM 30 GM TUBE TOP SCH ×3 (08:02→16:54)
[2020-06-17] MEDS: Z GUARD REMEDY PASTE 57 GM TUBE TOP SCH ×2 (08:03→20:18)
[2020-06-17] MEDS: AMMONIUM LACTATE 12% LOTION 225 GM BOTTLE TP SCH (08:03)
--- NOTE | 2020-06-17 10:16 | NUR ---
Dr. Robert Gonzales in the unit to see and assess pt. full report given
--- NOTE | 2020-06-17 10:18 | NUR ---
dialysis nurse in the unit setting up to dialyse pt
[2020-06-17 10:51] LABS: GENTAMICIN,RANDOM 4.7 ug/mL (4.0-8.0); VANCOMYCIN,RANDOM 18.3 ug/mL (18.0-26.0)
--- NOTE | 2020-06-17 11:02 | NUR ---
Informed ID PATIENT INTAKE COORDINATOR Charlie Hoyt that pharmacy was asking if Flagyl can be discontinued since pt's C.diff is negative. Per PATIENT INTAKE COORDINATOR Charlie, okay to D/C Flagyl. medication discontinued as ordered. pharmacist Jim coughlin.
--- NOTE | 2020-06-17 11:08 | NUR ---
spoke to abigail Fernandez to verify admin route for pt's Retacrit. Asked pharmacist if okay to give as IV since order and med label state IV rather than SQ. Per Jim, recommended administration for pt is via IV and to go ahead and give it as IV as stated.
[2020-06-17] MEDS: EPOETIN ALFA-EPBX 10,000 UNIT/ML VIAL IV PRN (12:20)
--- NOTE | 2020-06-17 12:21 | NUR ---
pt completed dialysis, 2L taken out. VSS. no adverse reactions noted. Retacrit given after dialysis as ordered.
[2020-06-17] MEDS: MICAFUNGIN SODIUM 100 MG in IV NORMAL SALINE 100 ML IV SCH (12:57)
[2020-06-17] MEDS: GENTAMICIN SULFATE INJ 120 MG in IV DEXTROSE 5% 100 ML IV PRN (13:00)
--- NOTE | 2020-06-17 13:02 | NUR ---
FOREPART LASTER Charlie Hoyt in the unit to see and assess pt. full report given
[2020-06-17] MEDS: VANCOMYCIN IV 500 MG in IV DEXTROSE 5% 100 ML IV PRN (13:22)
[2020-06-17] MEDS: ACETAMINOPHEN 650 MG/20.3 ML LIQUID UDC NG PRN (17:04)
--- NOTE | 2020-06-17 19:12 | NUR ---
shift report given to zoo director RN. left pt in bed with no acute distress noted. pt trach to vent on AC 16 TV 550 Peep 7 FiO2 55%. NSR on the monitor. completed dialysis today with no adverse reactions. NGT with tube feeding Nephro running @45ml/hr. Ruff cath in place. DARREN PICC line patent with TKO running @10ml/hr, (L) IJ rashi cath in place. pt kept clean and dry.
--- NOTE | 2020-06-17 19:43 | NUR ---
ROUND MADE PATIENT IN BED TACH TO VENT SATURATION 92-94% PATIENT OPEN EYES SPONTANEOUSLY BUT DOESN'T FOLLOW COMMANDS.SR ON THE HEART MONITOR RATE OF 79,BP146/71.LOW GRADE TEMP 100.3 VIA RECTALLY DAY SHIFT RN GAVE HER TYLENOL FOR ELEVATED TEMP.COOLING BLANKET ON . HOB UP ASPIRATION PRECAUTION OBSERVED TUBE FEEDING TOLERATED .F/C PER DAY SHIFT ONLY 75 ML FOR 12 HOURS ,PATIENT S/P DIALYSIS FLUID REMOVAL 2000 ML.ELEVATED UPPER AND LOWER EXTREMITIES WITH PILLOWS. CONTINUE TO MONIOTR V/S AND LEVEL OF COMFORT .
[2020-06-17] MEDS: ATORVASTATIN 40 MG TABLET PO SCH (20:09)
--- NOTE | 2020-06-17 20:36 | NUR ---
CALLED DOCTOR ESTRELLITA [facility]ICE FOR THE HS BLOOD SUGAR 93 , PATIENT ON LANTUS 50 UNITS ,HE CHANGED LANTUS ORDER TO 15 UNITS Q HS.
[2020-06-17] MEDS: INSULIN GLARGINE,HUM 300 UNITS/3 ML CARTRIDGE SQ SCH (20:42)
--- NOTE | 2020-06-17 21:11 | NUR ---
SPOKED WITH PATIENT NEICE AND QUESTION WHERE ANSWERED AND GIVEN UPDATED VENTS AND V/S. AND MEDICATIONS ETC.
--- NOTE | 2020-06-17 22:30 | NUR ---
TURNED AND REPOSITION PATIENT . OFFLOADED BACK WITH PILLOW ,HEELS OFF BED . ELEVATED EXTREMITIES WITH PILLOWS . ORAL CARE AND SUCTION PATIENT VIA MOUTH AND ETT.
[2020-06-17] MEDS: CLONIDINE HCL 0.1 MG TABLET PO PRN (23:10)
--- NOTE | 2020-06-17 23:41 | NUR ---
GIVEN PRN CLONIDINE VIA PEG FOR BP-173/79 MAP 118 .
--- NOTE | 2020-06-17 23:42 | NUR ---
BP RECHECKED AFTER CLONIDINE 164/83 HR 71.WILL CONTINUE TO MONITOR BP .
[2020-06-18] VITALS (24 sets, daily range): BP systolic 110–167; BP diastolic 54–83
[2020-06-18] MEDS: IPRATROPIUM BROMIDE 0.5 MG/2.5 ML NEBU NEB PRN (00:30)
[2020-06-18] MEDS: ALBUTEROL SULFATE 2.5 MG/3 ML NEBU NEB PRN (00:30)
[2020-06-18] MEDS: IV NORMAL SALINE 250 ML IV PRN (02:19)
[2020-06-18] MEDS: ACETAMINOPHEN 650 MG/20.3 ML LIQUID UDC NG PRN (02:38)
--- NOTE | 2020-06-18 05:00 | NUR ---
am care done bath patient. had x2 bm total soft and brownish in color . hydrogel and z guard applied to bilateral groin and sacral area and body folds .changed soiled linens and gown .
--- NOTE | 2020-06-18 05:23 | NUR ---
94.3F via rectal temp low,placed with thick blanket .turned on the heat mode on the ([employer] COOLING MACHINE ). will continue to monitor temp .
[2020-06-18] MEDS: BLOOD SUGAR DIAGNOSTIC 1 EACH STRIP VI SCH ×4 (05:52→23:30)
[2020-06-18 05:58] LABS: CREATININE 5.2 mg/dL (0.6-1.3); MAGNESIUM 2.4 mg/dL (1.8-2.4); PHOSPHOROUS 6.2 mg/dL (2.5-4.9); POTASSIUM 4.7 mmol/L (3.5-5.1)
[2020-06-18 05:59] LABS: BASOPHILS # (AUTO) 0.1 K/uL (0.0-8.0); BASOPHILS % (AUTO) 0.9 % (0.0-2.0); EOSINOPHILS # (AUTO) 0.1 K/uL (0.0-0.7); EOSINOPHILS % (AUTO) 0.8 % (0.0-7.0); HEMATOCRIT 29.4 % (31.2-41.9); HEMOGLOBIN 8.5 g/dL (10.9-14.3); LYMPHOCYTES % (AUTO) 6.6 % (20.5-51.5); MEAN CORPUSCULAR HEMOGLOBIN 23.3 uug (24.7-32.8); MEAN CORPUSCULAR HGB CONC 29 g/dL (32.3-35.6); MONOCYTES # (AUTO) 0.9 K/uL (2.0-10.0); MONOCYTES % (AUTO) 5.9 % (0.0-11.0); NEUTROPHILS # (AUTO) 13.3 K/uL (1.8-8.9); NEUTROPHILS % (AUTO) 85.8 % (38.5-71.5); PLATELET COUNT (AUTO) 305 K/uL (179-408); RED BLOOD CELL COUNT(AUTO) 3.63 MIL/uL (3.63-4.92); WHITE BLOOD COUNT (AUTO) 15.5 K/uL (3.8-11.8)
--- NOTE | 2020-06-18 07:21 | NUR ---
received pt in bed in no acute distress. pt on trach to vent with settings AC 16 TV 550 Peep 7 FiO2 30%. DARREN PICC line patent running TKO @10ml/hr. CHALO & cesar in place. pt's temp being monitored on cooling machine, temp 98. 1 rectally.
[2020-06-18 07:44] LABS: ABG BASE EXCESS -0.2 mmol/L; ABG PH 7.429 (7.350-7.450); ABG PO2 66.3 mmHg (75.0-100.0); ABG SITE RIGHT RADIAL; ABG TOTAL HEMOGLOBIN 9.3 G/dL (12.0-16.0); COHb 1.3 % (0.5-1.5); MetHb 0.3 % (0.0-1.5); O2Hb 89.5 % (94.0-97.0); VENT MODE VENT - A/C; VT, ABG 550 mL
[2020-06-18] MEDS: MULTIVITAMINS,THERAPEUTIC TABLET PO SCH (08:00)
[2020-06-18] MEDS: ASPIRIN 81 MG TAB.CHEW GT SCH (08:00)
[2020-06-18] MEDS: CHLORHEXIDINE GLUCONATE 15 ML MOUTHWASH MM SCH ×2 (08:00→20:57)
[2020-06-18] MEDS: FERROUS SULFATE 300 MG/5 ML LIQUID UDC PO SCH ×3 (08:00→16:16)
[2020-06-18] MEDS: MODAFINIL 100 MG TABLET PO SCH (08:00)
[2020-06-18] MEDS: METOPROLOL TARTRATE 50 MG TABLET PO SCH ×2 (08:00→20:56)
[2020-06-18] MEDS: PANTOPRAZOLE ORAL SUSPENSION 40 MG SUSPDR.PKT GT SCH (08:00)
[2020-06-18] MEDS: HEPARIN SODIUM,PORCINE 5,000 UNITS/ML VIAL SQ SCH ×2 (08:01→20:57)
[2020-06-18] MEDS: AMLODIPINE 5 MG TABLET PO SCH ×2 (08:01→16:17)
[2020-06-18] MEDS: CLOTRIMAZOLE 1% CREAM 30 GM TUBE TOP SCH ×3 (08:01→16:18)
[2020-06-18] MEDS: Z GUARD REMEDY PASTE 57 GM TUBE TOP SCH ×2 (08:01→21:18)
[2020-06-18] MEDS: AMMONIUM LACTATE 12% LOTION 225 GM BOTTLE TP SCH (08:02)
[2020-06-18] MEDS: NEPRO 1000 ML NG PRN (08:15)
--- NOTE | 2020-06-18 08:15 | NUR ---
Dr. Nicole in the unit to see and assess pt. full report given
--- NOTE | 2020-06-18 09:06 | NUR ---
ELECTRIC OPERATOR Isra Trujillo in the unit to see and assess pt. full report given
--- NOTE | 2020-06-18 09:25 | NUR ---
spoke to pt's niece Ariadne on the telephone, given update on pt's condition. Per Ariadne, she wants neuro MD Dr. Thompson to give her a call when possible to get updates, she also wants TAWANDA Trujillo to give her a call. TAWANDA Dhaliwal informed of request from pt's family and stated he will call her.
[2020-06-18] MEDS: MICAFUNGIN SODIUM 100 MG in IV NORMAL SALINE 100 ML IV SCH (13:00)
--- NOTE | 2020-06-18 17:20 | NUR ---
left message for Dr. Thompson informing him that pt's nelly Ron wants him to call her and speak to him about pt's condition. Addendum: 06/18/20 at 1811 by SARWAT ROSA RN received response from Dr. Thompson. Per , he will call pt's nelly Ron tomorrow. phone number given to
--- NOTE | 2020-06-18 19:05 | NUR ---
shift report given to overnight cashier RN. pt remains trach to vent with settings AC 16 TV 550 Peep 7 FiO2 55%. NSR on the monitor. DARREN picc line patent. NGT, cesar and (L) IJ rashi cath in place. tolerating tube feeding. pt kept clean and dry
--- NOTE | 2020-06-18 19:30 | NUR ---
Report received. Patient with trache to mechanical ventilator settings as follows: AC=16, FIO2=55%, JQ=401xt and PEEP=7 cm. O2 saturations above 94%. Suctioned for small amounts of thick clear to castro trache secretions. With good cough reflex. Eyes open, doesn't track. Extremities flaccid and markedly edematous. Incontinent of semi soft to liquid dark green stools. PM care rendered. Continue to passed semi soft liquid stools during turning. Flexi seal inserted without difficulty. Skin care provided. Assessment completed. Addendum: 06/19/20 at 0020 by MINERVA WARD RN Amended: Links added. Addendum: 06/19/20 at 0024 by MINERVA WARD RN Amended: Links added. Addendum: 06/19/20 at 0024 by MINERVA WARD RN Amended: Links added. Addendum: 06/19/20 at 0026 by MINERVA WARD RN Amended: Links added. Addendum: 06/19/20 at 0026 by MINERVA WARD RN Amended: Links added. Addendum: 06/19/20 at 0026 by MINERVA WARD RN Amended: Links added. Addendum: 06/19/20 at 0027 by MINERVA WARD RN Amended: Links added. Addendum: 06/19/20 at 0027 by MINERVA TAECHARATKIJ RN Amended: Links added. Addendum: 06/19/20 at 0027 by MINERVA WARD RN Amended: Links added. Addendum: 06/19/20 at 0027 by MINERVA WARD RN Amended: Links added. Addendum: 06/19/20 at 0028 by MINERVA WARD RN Amended: Links added.
--- NOTE | 2020-06-18 20:30 | NUR ---
Patient's nelly Ron called; updated of patient's condition. Wants to talk to Dr. Thompson; advised that this RN will leave note to am shift re: this. Addendum: 06/19/20 at 0024 by MINERVA WARD RN Amended: Links added. Addendum: 06/19/20 at 0024 by MINERVA WARD RN Amended: Links added. Addendum: 06/19/20 at 0026 by MINERVA WARD RN Amended: Links added. Addendum: 06/19/20 at 0026 by MINERVA WARD RN Amended: Links added. Addendum: 06/19/20 at 0026 by MINERVA WARD RN Amended: Links added. Addendum: 06/19/20 at 0027 by MINERVA WARD RN Amended: Links added. Addendum: 06/19/20 at 0027 by MINERVA WARD RN Amended: Links added. Addendum: 06/19/20 at 0027 by MINERVA WARD RN Amended: Links added. Addendum: 06/19/20 at 0027 by MINERVA WARD RN Amended: Links added. Addendum: 06/19/20 at 0028 by MINERVA WARD RN Amended: Links added.
[2020-06-18] MEDS: ATORVASTATIN 40 MG TABLET PO SCH (20:57)
[2020-06-18] MEDS: INSULIN GLARGINE,HUM 300 UNITS/3 ML CARTRIDGE SQ SCH (20:59)
[2020-06-18] MEDS: INSULIN REGULAR, HUMAN 300 UNIT/3 ML VIAL SQ PRN (23:32)
[2020-06-19] VITALS (24 sets, daily range): BP systolic 114–146; BP diastolic 54–77
[2020-06-19] MEDS: IV NORMAL SALINE 250 ML IV PRN (02:57)
[2020-06-19 04:57] LABS: BASOPHILS # (AUTO) 0.1 K/uL (0.0-8.0); BASOPHILS % (AUTO) 0.8 % (0.0-2.0); EOSINOPHILS # (AUTO) 0.1 K/uL (0.0-0.7); EOSINOPHILS % (AUTO) 0.6 % (0.0-7.0); HEMATOCRIT 31.3 % (31.2-41.9); HEMOGLOBIN 9.1 g/dL (10.9-14.3); LYMPHOCYTES # (AUTO) 1.2 K/uL (20.0-40.0); LYMPHOCYTES % (AUTO) 7.5 % (20.5-51.5); MEAN CORPUSCULAR HEMOGLOBIN 23.5 uug (24.7-32.8); MEAN CORPUSCULAR HGB CONC 29 g/dL (32.3-35.6); MEAN CORPUSCULAR VOLUME 80.7 fL (75.5-95.3); MONOCYTES # (AUTO) 1.1 K/uL (2.0-10.0); MONOCYTES % (AUTO) 6.8 % (0.0-11.0); NEUTROPHILS # (AUTO) 13.6 K/uL (1.8-8.9); NEUTROPHILS % (AUTO) 84.3 % (38.5-71.5); PLATELET COUNT (AUTO) 329 K/uL (179-408); RED BLOOD CELL COUNT(AUTO) 3.87 MIL/uL (3.63-4.92); WHITE BLOOD COUNT (AUTO) 16.1 K/uL (3.8-11.8)
[2020-06-19 05:06] LABS: CREATININE 5.9 mg/dL (0.6-1.3); GENTAMICIN,RANDOM 5.3 ug/mL (4.0-8.0); MAGNESIUM 2.7 mg/dL (1.8-2.4); POTASSIUM 5.2 mmol/L (3.5-5.1); VANCOMYCIN,RANDOM 21.8 ug/mL (18.0-26.0)
[2020-06-19 05:11] LABS: PHOSPHOROUS 8.5 mg/dL (2.5-4.9)
--- NOTE | 2020-06-19 06:00 | NUR ---
O2 saturations 91-92%. Suctioned and repositioned. HOB elevated above 30 degrees at all times. Tolerating NGT feedings fairly well; off 7722-2659. FIO2 increased to 60% by RT. Will monitor closely. Addendum: 06/19/20 at 0615 by MINERVA WARD RN Amended: Links added. Addendum: 06/19/20 at 0623 by MINERVA WARD RN Amended: Links added.
[2020-06-19] MEDS: BLOOD SUGAR DIAGNOSTIC 1 EACH STRIP VI SCH ×3 (06:06→18:32)
--- NOTE | 2020-06-19 06:40 | NUR ---
Dr. Thompson here, examined patient; report given. Informed of patient's niece Ariadne desire to speak to him. stated he will call her today.
--- NOTE | 2020-06-19 07:15 | NUR ---
Received pt. on ventilator A/C 16, tv 550, FIO2 60% PEEP +7. saturation within 91%. no distress noted at this time. Hemodialysis in progress. Pt. hemodynamically stable, sbp within normal limits. guerrero to gravity. NG=T feeding to be resumed.
--- NOTE | 2020-06-19 08:15 | NUR ---
Pulmonary services, Dr. Nicole in the unit to see and examine pt. report given orders to continue with care plan received.
--- NOTE | 2020-06-19 08:57 | NUR ---
HD done at this time as reported, 3liters out.
[2020-06-19] MEDS: MODAFINIL 100 MG TABLET PO SCH (09:09)
[2020-06-19] MEDS: CHLORHEXIDINE GLUCONATE 15 ML MOUTHWASH MM SCH ×2 (09:09→21:02)
[2020-06-19] MEDS: FERROUS SULFATE 300 MG/5 ML LIQUID UDC PO SCH ×3 (09:09→18:29)
[2020-06-19] MEDS: MULTIVITAMINS,THERAPEUTIC TABLET PO SCH (09:09)
[2020-06-19] MEDS: PANTOPRAZOLE ORAL SUSPENSION 40 MG SUSPDR.PKT GT SCH (09:09)
[2020-06-19] MEDS: AMLODIPINE 5 MG TABLET PO SCH ×2 (09:09→18:29)
[2020-06-19] MEDS: METOPROLOL TARTRATE 50 MG TABLET PO SCH ×2 (09:10→21:02)
[2020-06-19] MEDS: ASPIRIN 81 MG TAB.CHEW GT SCH (09:10)
[2020-06-19] MEDS: HEPARIN SODIUM,PORCINE 5,000 UNITS/ML VIAL SQ SCH ×2 (09:11→21:03)
[2020-06-19] MEDS: Z GUARD REMEDY PASTE 57 GM TUBE TOP SCH ×2 (09:12→21:04)
[2020-06-19] MEDS: CLOTRIMAZOLE 1% CREAM 30 GM TUBE TOP SCH ×3 (09:12→18:30)
[2020-06-19] MEDS: AMMONIUM LACTATE 12% LOTION 225 GM BOTTLE TP SCH (09:15)
[2020-06-19] MEDS: ACETAMINOPHEN 650 MG/20.3 ML LIQUID UDC NG PRN (09:24)
[2020-06-19] MEDS: NEPRO 1000 ML NG PRN (11:26)
[2020-06-19] MEDS: MICAFUNGIN SODIUM 100 MG in IV NORMAL SALINE 100 ML IV SCH (12:31)
[2020-06-19] MEDS: EPOETIN ALFA-EPBX 10,000 UNIT/ML VIAL IV PRN (12:46)
--- NOTE | 2020-06-19 20:30 | NUR ---
Nelly: Mario called / update. Request call-back from: Neuro & renal MD's. Also, nelly wants to be called / any events.
[2020-06-19] MEDS: ATORVASTATIN 40 MG TABLET PO SCH (21:02)
[2020-06-19] MEDS: INSULIN GLARGINE,HUM 300 UNITS/3 ML CARTRIDGE SQ SCH (21:04)
[2020-06-20] VITALS (24 sets, daily range): BP systolic 117–156; BP diastolic 58–83
[2020-06-20] MEDS: BLOOD SUGAR DIAGNOSTIC 1 EACH STRIP VI SCH ×4 (00:15→17:17)
--- NOTE | 2020-06-20 04:00 | NUR ---
Trach & wound cares done. Uneventful NOC.
[2020-06-20 05:42] LABS: BASOPHILS # (AUTO) 0.1 K/uL (0.0-8.0); BASOPHILS % (AUTO) 0.8 % (0.0-2.0); EOSINOPHILS # (AUTO) 0.1 K/uL (0.0-0.7); EOSINOPHILS % (AUTO) 0.6 % (0.0-7.0); HEMATOCRIT 30.6 % (31.2-41.9); HEMOGLOBIN 8.8 g/dL (10.9-14.3); LYMPHOCYTES # (AUTO) 1.4 K/uL (20.0-40.0); LYMPHOCYTES % (AUTO) 9.5 % (20.5-51.5); MEAN CORPUSCULAR HEMOGLOBIN 23.2 uug (24.7-32.8); MEAN CORPUSCULAR HGB CONC 29 g/dL (32.3-35.6); MEAN CORPUSCULAR VOLUME 80.6 fL (75.5-95.3); MONOCYTES % (AUTO) 6.7 % (0.0-11.0); NEUTROPHILS # (AUTO) 12.6 K/uL (1.8-8.9); NEUTROPHILS % (AUTO) 82.4 % (38.5-71.5); PLATELET COUNT (AUTO) 283 K/uL (179-408); RED BLOOD CELL COUNT(AUTO) 3.79 MIL/uL (3.63-4.92); WHITE BLOOD COUNT (AUTO) 15.2 K/uL (3.8-11.8)
[2020-06-20 05:47] LABS: CREATININE 5.5 mg/dL (0.6-1.3); MAGNESIUM 2.6 mg/dL (1.8-2.4)
--- NOTE | 2020-06-20 07:15 | NUR ---
Received pt. on ventilator A/C 16, tv. 550, FIO2 90% PEEP 7. Received pt with low grade fever 99.7. ngt feeding to be resumed. guerrero to gravity. Neuro-lizama remains obtunded. guerrero to gravity. Noskin breakdown. Will continue with care plan.
[2020-06-20] MEDS: METOPROLOL TARTRATE 50 MG TABLET PO SCH ×2 (08:16→20:48)
[2020-06-20] MEDS: ASPIRIN 81 MG TAB.CHEW GT SCH (08:17)
[2020-06-20] MEDS: AMLODIPINE 5 MG TABLET PO SCH ×2 (08:17→17:07)
[2020-06-20] MEDS: HEPARIN SODIUM,PORCINE 5,000 UNITS/ML VIAL SQ SCH ×2 (08:18→20:49)
[2020-06-20] MEDS: CLOTRIMAZOLE 1% CREAM 30 GM TUBE TOP SCH ×3 (08:18→17:08)
[2020-06-20] MEDS: MULTIVITAMINS,THERAPEUTIC TABLET PO SCH (08:19)
[2020-06-20] MEDS: FERROUS SULFATE 300 MG/5 ML LIQUID UDC PO SCH ×3 (08:20→17:07)
[2020-06-20] MEDS: CHLORHEXIDINE GLUCONATE 15 ML MOUTHWASH MM SCH ×2 (08:20→20:48)
[2020-06-20] MEDS: MODAFINIL 100 MG TABLET PO SCH (08:20)
[2020-06-20] MEDS: PANTOPRAZOLE ORAL SUSPENSION 40 MG SUSPDR.PKT GT SCH (08:21)
[2020-06-20] MEDS: Z GUARD REMEDY PASTE 57 GM TUBE TOP SCH ×2 (08:25→20:52)
[2020-06-20] MEDS: AMMONIUM LACTATE 12% LOTION 225 GM BOTTLE TP SCH (08:32)
--- NOTE | 2020-06-20 08:56 | NUR ---
PT saturation barely maintained in the 90's FIO2 increased to 70% per RT. Pieter who remains at bedside.
--- NOTE | 2020-06-20 08:57 | NUR ---
Pulmonary services, Dr. Nicole in the unit to see and examine pt. report given see order hx.
[2020-06-20] MEDS: NEPRO 1000 ML NG PRN (10:44)
--- NOTE | 2020-06-20 11:16 | NUR ---
Zach Ortez. attending in the unit to see and examine pt. report given. At time He called Ms. Ron and updated her of care plan.
[2020-06-20] MEDS: MICAFUNGIN SODIUM 100 MG in IV NORMAL SALINE 100 ML IV SCH (12:43)
--- NOTE | 2020-06-20 20:30 | NUR ---
Family (facetime) with patient & update / nurse.
[2020-06-20] MEDS: ATORVASTATIN 40 MG TABLET PO SCH (20:48)
[2020-06-20] MEDS: INSULIN GLARGINE,HUM 300 UNITS/3 ML CARTRIDGE SQ SCH (20:52)
[2020-06-21] VITALS (25 sets, daily range): BP systolic 125–145; BP diastolic 64–88
[2020-06-21] MEDS: BLOOD SUGAR DIAGNOSTIC 1 EACH STRIP VI SCH ×4 (00:17→17:57)
--- NOTE | 2020-06-21 01:00 | NUR ---
Left lower leg dressing changed. Site improving.
[2020-06-21 05:00] LABS: BASOPHILS # (AUTO) 0.2 K/uL (0.0-8.0); BASOPHILS % (AUTO) 0.7 % (0.0-2.0); EOSINOPHILS # (AUTO) 0.1 K/uL (0.0-0.7); EOSINOPHILS % (AUTO) 0.5 % (0.0-7.0); HEMATOCRIT 31.2 % (31.2-41.9); HEMOGLOBIN 8.9 g/dL (10.9-14.3); LYMPHOCYTES # (AUTO) 1.4 K/uL (20.0-40.0); LYMPHOCYTES % (AUTO) 6.7 % (20.5-51.5); MEAN CORPUSCULAR HEMOGLOBIN 23.1 uug (24.7-32.8); MEAN CORPUSCULAR HGB CONC 29 g/dL (32.3-35.6); MEAN CORPUSCULAR VOLUME 80.8 fL (75.5-95.3); MONOCYTES # (AUTO) 1.1 K/uL (2.0-10.0); MONOCYTES % (AUTO) 5.6 % (0.0-11.0); NEUTROPHILS # (AUTO) 17.7 K/uL (1.8-8.9); NEUTROPHILS % (AUTO) 86.5 % (38.5-71.5); PLATELET COUNT (AUTO) 312 K/uL (179-408); RED BLOOD CELL COUNT(AUTO) 3.87 MIL/uL (3.63-4.92); WHITE BLOOD COUNT (AUTO) 20.4 K/uL (3.8-11.8)
[2020-06-21 05:10] LABS: CREATININE 6.6 mg/dL (0.6-1.3); MAGNESIUM 2.7 mg/dL (1.8-2.4); POTASSIUM 5.4 mmol/L (3.5-5.1); VANCOMYCIN,RANDOM 16.6 ug/mL (18.0-26.0)
[2020-06-21 05:14] LABS: PHOSPHOROUS 8.4 mg/dL (2.5-4.9)
[2020-06-21 05:34] LABS: ABG BASE EXCESS -0.5 mmol/L; ABG HCO3 22.7 mmol/L; ABG PCO2 31.7 mmHg (35.0-45.0); ABG PH 7.472 (7.350-7.450); ABG PO2 82.5 mmHg (75.0-100.0); ABG SITE LEFT RADIAL; ABG TOTAL HEMOGLOBIN 9.7 G/dL (12.0-16.0); COHb 1.5 % (0.5-1.5); MetHb 0.3 % (0.0-1.5); O2Hb 93.6 % (94.0-97.0); VENT MODE VENT - A/C; VT, ABG 550 mL
--- NOTE | 2020-06-21 08:00 | NUR ---
Pulmonary services, Dr. Nicole in the unit to see and examine pt. report given see order hx.
[2020-06-21] MEDS: CHLORHEXIDINE GLUCONATE 15 ML MOUTHWASH MM SCH ×2 (08:01→20:41)
[2020-06-21] MEDS: FERROUS SULFATE 300 MG/5 ML LIQUID UDC PO SCH ×3 (08:01→16:52)
[2020-06-21] MEDS: METOPROLOL TARTRATE 50 MG TABLET PO SCH ×2 (08:01→20:41)
[2020-06-21] MEDS: AMLODIPINE 5 MG TABLET PO SCH ×2 (08:01→16:52)
[2020-06-21] MEDS: ASPIRIN 81 MG TAB.CHEW GT SCH (08:01)
[2020-06-21] MEDS: PANTOPRAZOLE ORAL SUSPENSION 40 MG SUSPDR.PKT GT SCH (08:02)
[2020-06-21] MEDS: MULTIVITAMINS,THERAPEUTIC TABLET PO SCH (08:02)
[2020-06-21] MEDS: HEPARIN SODIUM,PORCINE 5,000 UNITS/ML VIAL SQ SCH ×2 (08:03→20:42)
[2020-06-21] MEDS: CLOTRIMAZOLE 1% CREAM 30 GM TUBE TOP SCH ×3 (08:03→16:52)
[2020-06-21] MEDS: Z GUARD REMEDY PASTE 57 GM TUBE TOP SCH ×2 (08:03→20:42)
[2020-06-21] MEDS: AMMONIUM LACTATE 12% LOTION 225 GM BOTTLE TP SCH (08:04)
[2020-06-21] MEDS: AMANTADINE HCL 100 MG CAPSULE PO SCH (08:05)
[2020-06-21] MEDS: MODAFINIL 100 MG TABLET PO SCH (08:06)
--- NOTE | 2020-06-21 08:30 | NUR ---
A call from Ariadne pt's niece requesting a call from neurologist Dr. Thompson. informed by rn. Carlson and as informed later on He call Ms. Ron to update her of care plan. Addendum: 06/21/20 at 1105 by LITA GARCIA RN as informed by Ariadne advise her to visit pt today, to see if pt responds better than before to a familiar voice. Engagement Director notified and arrangements for visiting made.
--- NOTE | 2020-06-21 08:45 | NUR ---
Attending physician Dr. Raina Hagan in the unit to follow up on pt. Orders to continue with care plan received.
[2020-06-21] MEDS: NEPRO 1000 ML NG PRN (09:17)
--- NOTE | 2020-06-21 17:00 | NUR ---
internet retailer. in hd. in progress.
--- NOTE | 2020-06-21 19:30 | NUR ---
Report received. Patient with trache Shiley#6 XLT to mechanical ventilator, settings as follows: AC=16, FIO2=75%, PEEP=7 and VQ=706ed. O2 saturations above 93%. Opens eyes, doesn't track but grimaces to pain. With very mild withdrawal or movement of UEs to pain. library monitor: SR rate 70's-80's, no dysrhythmias. On the Baribarryvillex bed. Temp=99.5 orally; cooling measures done. Turned and repositioned; skin care provided. Flexi seal in place, with liquid dark green stools. Complete assessment done. Addendum: 06/22/20 at 0044 by MINERVA WARD RN Amended: Links added. Addendum: 06/22/20 at 0045 by MINERVA WARD RN Amended: Links added. Addendum: 06/22/20 at 0047 by MINERVA WARD RN Amended: Links added. Addendum: 06/22/20 at 0048 by MINERVA WARD RN Amended: Links added. Addendum: 06/22/20 at 0048 by MINERVA WARD RN Amended: Links added. Addendum: 06/22/20 at 0048 by MINERVA WARD RN Amended: Links added. Addendum: 06/22/20 at 0049 by MINERVA WARD RN Amended: Links added. Addendum: 06/22/20 at 0049 by MINERVA WARD RN Amended: Links added. Addendum: 06/22/20 at 0049 by MINERVA WARD RN Amended: Links added. Addendum: 06/22/20 at 0049 by MINERVA WARD RN Amended: Links added. Addendum: 06/22/20 at 0050 by MINERVA WARD RN Amended: Links added. Addendum: 06/22/20 at 0050 by MINERVA WARD RN Amended: Links added.
[2020-06-21] MEDS: EPOETIN ALFA-EPBX 10,000 UNIT/ML VIAL IV PRN (19:52)
--- NOTE | 2020-06-21 20:40 | NUR ---
Seen by Charlie CLAY Addendum: 06/22/20 at 0045 by MINERVA WARD RN Amended: Dwaine added. Addendum: 06/22/20 at 0047 by MINERVA WARD RN Amended: Dwaine added. Addendum: 06/22/20 at 0048 by MINERVA WARD RN Amended: Links added. Addendum: 06/22/20 at 0048 by MINERVA WARD RN Amended: Links added. Addendum: 06/22/20 at 0048 by MINERVA WARD RN Amended: Links added. Addendum: 06/22/20 at 0049 by MINERVA WARD RN Amended: Links added. Addendum: 06/22/20 at 0049 by MINERVA WARD RN Amended: Links added. Addendum: 06/22/20 at 0049 by MINERVA WARD RN Amended: Links added. Addendum: 06/22/20 at 0049 by MINERVA WARD RN Amended: Links added. Addendum: 06/22/20 at 0050 by MINERVA WARD RN Amended: Links added. Addendum: 06/22/20 at 0050 by MINERVA WARD RN Amended: Links added.
[2020-06-21] MEDS: ATORVASTATIN 40 MG TABLET PO SCH (20:41)
[2020-06-21] MEDS: INSULIN GLARGINE,HUM 300 UNITS/3 ML CARTRIDGE SQ SCH (20:48)
[2020-06-21] MEDS: ACETAMINOPHEN 650 MG/20.3 ML LIQUID UDC NG PRN (20:49)
--- NOTE | 2020-06-21 21:45 | NUR ---
Patient's nelly Ron called; updated of condition. Addendum: 06/22/20 at 0047 by MINERVA WARD RN Amended: Links added. Addendum: 06/22/20 at 47 by MINERVA WARD RN Amended: Links added. Addendum: 06/22/20 at 8 by MINERVA WARD RN Amended: Links added. Addendum: 06/22/20 at 0048 by MINERVA WARD RN Amended: Links added. Addendum: 06/22/20 at 0049 by MINERVA WARD RN Amended: Links added. Addendum: 06/22/20 at 0049 by MINERVA WARD RN Amended: Links added. Addendum: 06/22/20 at 0049 by MINERVA WARD RN Amended: Links added. Addendum: 06/22/20 at 0049 by MINERVA WARD RN Amended: Links added. Addendum: 06/22/20 at 0050 by MINERVA WARD RN Amended: Dwaine added. Addendum: 06/22/20 at 0050 by MINERVA WARD RN Amended: Dwaine added.
--- NOTE | 2020-06-21 22:30 | NUR ---
Blood cultures x 2 done; urine specimen sent to lab for C/S. Addendum: 06/22/20 at 0048 by MINERVA WARD RN Amended: Links added. Addendum: 06/22/20 at 0048 by MINERVA WARD RN Amended: Links added. Addendum: 06/22/20 at 0048 by MINERVA WARD RN Amended: Links added. Addendum: 06/22/20 at 0049 by MINERVA WARD RN Amended: Links added. Addendum: 06/22/20 at 0049 by MINERVA WARD RN Amended: Links added. Addendum: 06/22/20 at 0049 by MINERVA WARD RN Amended: Links added. Addendum: 06/22/20 at 0049 by MINERVA WARD RN Amended: Links added. Addendum: 06/22/20 at 0050 by MINERVA WARD RN Amended: Links added. Addendum: 06/22/20 at 0050 by MINERVA WARD RN Amended: Links added.
[2020-06-22] VITALS (24 sets, daily range): BP systolic 117–140; BP diastolic 59–78
[2020-06-22] MEDS: BLOOD SUGAR DIAGNOSTIC 1 EACH STRIP VI SCH ×5 (00:07→23:11)
[2020-06-22] MEDS: IV NORMAL SALINE 250 ML IV PRN (02:48)
[2020-06-22 04:52] LABS: BASOPHILS # (AUTO) 0.1 K/uL (0.0-8.0); BASOPHILS % (AUTO) 0.5 % (0.0-2.0); EOSINOPHILS # (AUTO) 0.1 K/uL (0.0-0.7); EOSINOPHILS % (AUTO) 0.7 % (0.0-7.0); HEMATOCRIT 28.6 % (31.2-41.9); HEMOGLOBIN 8.2 g/dL (10.9-14.3); LYMPHOCYTES # (AUTO) 1.1 K/uL (20.0-40.0); LYMPHOCYTES % (AUTO) 6.2 % (20.5-51.5); MEAN CORPUSCULAR HEMOGLOBIN 23.4 uug (24.7-32.8); MEAN CORPUSCULAR HGB CONC 29 g/dL (32.3-35.6); MEAN CORPUSCULAR VOLUME 81.8 fL (75.5-95.3); MONOCYTES # (AUTO) 0.9 K/uL (2.0-10.0); MONOCYTES % (AUTO) 4.8 % (0.0-11.0); NEUTROPHILS # (AUTO) 15.8 K/uL (1.8-8.9); NEUTROPHILS % (AUTO) 87.8 % (38.5-71.5); PLATELET COUNT (AUTO) 220 K/uL (179-408)
[2020-06-22 05:03] LABS: MAGNESIUM 2.4 mg/dL (1.8-2.4); PHOSPHOROUS 7.6 mg/dL (2.5-4.9)
[2020-06-22] MEDS: INSULIN REGULAR, HUMAN 300 UNIT/3 ML VIAL SQ PRN ×2 (05:40→23:15)
--- NOTE | 2020-06-22 06:48 | NUR ---
No neuro changes. O2 saturations 92-95% on FIO2=75%. Tolerating NGT feedings well; off 8392-3769. Remains SR rate 70's; BPs stable. Addendum: 06/22/20 at 0651 by MINERVA WARD RN Amended: Links added.
--- NOTE | 2020-06-22 07:50 | NUR ---
Dr. Ward in the unit to see and assess pt. full report given.
--- NOTE | 2020-06-22 07:59 | NUR ---
Dr. Nicole in the unit to see and assess pt. full report given. see order hx
[2020-06-22] MEDS: CHLORHEXIDINE GLUCONATE 15 ML MOUTHWASH MM SCH ×2 (08:04→20:24)
[2020-06-22] MEDS: ASPIRIN 81 MG TAB.CHEW GT SCH (08:05)
[2020-06-22] MEDS: MULTIVITAMINS,THERAPEUTIC TABLET PO SCH (08:05)
[2020-06-22] MEDS: AMLODIPINE 5 MG TABLET PO SCH ×2 (08:05→16:46)
[2020-06-22] MEDS: FERROUS SULFATE 300 MG/5 ML LIQUID UDC PO SCH ×3 (08:05→16:45)
[2020-06-22] MEDS: PANTOPRAZOLE ORAL SUSPENSION 40 MG SUSPDR.PKT GT SCH (08:05)
[2020-06-22] MEDS: MODAFINIL 100 MG TABLET PO SCH (08:05)
[2020-06-22] MEDS: METOPROLOL TARTRATE 50 MG TABLET PO SCH ×2 (08:05→20:24)
[2020-06-22] MEDS: CLOTRIMAZOLE 1% CREAM 30 GM TUBE TOP SCH ×3 (08:06→16:46)
[2020-06-22] MEDS: HEPARIN SODIUM,PORCINE 5,000 UNITS/ML VIAL SQ SCH ×2 (08:06→20:25)
[2020-06-22] MEDS: Z GUARD REMEDY PASTE 57 GM TUBE TOP SCH ×2 (08:07→20:28)
[2020-06-22] MEDS: NEPRO 1000 ML NG PRN (08:07)
--- NOTE | 2020-06-22 08:30 | NUR ---
spoke to pt's nelly Holley. she's asking if she can come visit the pt everyday for at least 5min. informed her that I would need to ask the converter supervisor and/bereavement counselor for permission. miguelina Almonte informed and said she will go ahead and ask gunite nozzle operatordirector Juarez Addendum: 06/22/20 at 1402 by SARWAT ROSA RN per miguelina Almonte, they cannot allow family member to come visit everyday.
--- NOTE | 2020-06-22 08:34 | NUR ---
Dr. Thompson in the unit to see and assess pt. full report given. informed MD that pt's niece Leydi wanted to speak to her. Per MD, they talked yesterday and he will follow up with her in 1 week as they agreed. Leydi aware of MD response
[2020-06-22] MEDS: AMMONIUM LACTATE 12% LOTION 225 GM BOTTLE TP SCH (08:40)
--- NOTE | 2020-06-22 11:20 | NUR ---
spoke to pharmacist Jim. per pharmacist, pt did not receive IV Vanco and IV Gentamycin yesterday post dialysis. Per Jim,. give IV Vanco now and he will make a new bag of gentamycin to be given today as well. will give as ordered.
[2020-06-22] MEDS: VANCOMYCIN IV 500 MG in IV DEXTROSE 5% 100 ML IV PRN (11:22)
[2020-06-22] MEDS: GENTAMICIN SULFATE INJ 120 MG in IV DEXTROSE 5% 100 ML IV PRN (12:31)
--- NOTE | 2020-06-22 12:48 | NUR ---
Dr. Hartman in the unit to see and assess pt. full report given
--- NOTE | 2020-06-22 19:30 | NUR ---
shift report given to inspector filter tip RN. left pt in bed in stable condition. VSS. pt trach to vent on AC 16 TV 550 Peep 7 FiO2 75%. Nephro tube feeding running @45ml/hr via NGT. Ruff cath,flexiseal in place. DARREN PICC line patent and running TKO @10ml/hr.
--- NOTE | 2020-06-22 20:00 | NUR ---
v/s wnl ,SR on the heart monitor ,temp 99.2 orally . patient only open eyes spontaneously but doesn't follow commands .turned and reposition patient , suction via trach and via mouth .
[2020-06-22] MEDS: ATORVASTATIN 40 MG TABLET PO SCH (20:27)
[2020-06-22] MEDS: INSULIN GLARGINE,HUM 300 UNITS/3 ML CARTRIDGE SQ SCH (20:39)
--- NOTE | 2020-06-22 21:00 | NUR ---
f/s done and Lantus insulin given blood sugar =121, other tablet medication crushed and given via peg,flushed peg and patient tolerating TF ,rectal tube in progress with liquid stool . hob up aspiration precaution observed . continue to monitor v/s and i and os .
[2020-06-23] VITALS (40 sets, daily range): BP systolic 44–246; BP diastolic 24–140
--- NOTE | 2020-06-23 | NUR ---
turned and reposition patient ,f/s done and follow iss .
--- NOTE | 2020-06-23 04:00 | NUR ---
am care done ,changed soiled linens and gown . wound dressing done as per wound care orders. photo taken on patient skin photo day .
[2020-06-23 04:58] LABS: BASOPHILS # (AUTO) 0.1 K/uL (0.0-8.0); BASOPHILS % (AUTO) 0.5 % (0.0-2.0); EOSINOPHILS # (AUTO) 0.1 K/uL (0.0-0.7); EOSINOPHILS % (AUTO) 0.7 % (0.0-7.0); HEMATOCRIT 29.5 % (31.2-41.9); HEMOGLOBIN 8.7 g/dL (10.9-14.3); LYMPHOCYTES # (AUTO) 1.2 K/uL (20.0-40.0); LYMPHOCYTES % (AUTO) 7.4 % (20.5-51.5); MEAN CORPUSCULAR HEMOGLOBIN 24.1 uug (24.7-32.8); MEAN CORPUSCULAR HGB CONC 30 g/dL (32.3-35.6); MEAN CORPUSCULAR VOLUME 81.5 fL (75.5-95.3); MONOCYTES # (AUTO) 0.9 K/uL (2.0-10.0); MONOCYTES % (AUTO) 5.1 % (0.0-11.0); NEUTROPHILS # (AUTO) 14.4 K/uL (1.8-8.9); NEUTROPHILS % (AUTO) 86.3 % (38.5-71.5); PLATELET COUNT (AUTO) 266 K/uL (179-408); RED BLOOD CELL COUNT(AUTO) 3.62 MIL/uL (3.63-4.92); WHITE BLOOD COUNT (AUTO) 16.6 K/uL (3.8-11.8)
[2020-06-23 05:21] LABS: BILIRUBIN,TOTAL 0.6 mg/dL (0.2-1.0); CREATININE 7.1 mg/dL (0.6-1.3); GENTAMICIN,RANDOM 5.4 ug/mL (4.0-8.0); MAGNESIUM 2.6 mg/dL (1.8-2.4); POTASSIUM 5.7 mmol/L (3.5-5.1); TOTAL PROTEIN, SERUM 7.2 g/dL (6.4-8.2)
[2020-06-23] MEDS: BLOOD SUGAR DIAGNOSTIC 1 EACH STRIP VI SCH ×3 (05:36→17:24)
[2020-06-23] MEDS: INSULIN REGULAR, HUMAN 300 UNIT/3 ML VIAL SQ PRN ×2 (05:37→12:31)
[2020-06-23] MEDS: IV NORMAL SALINE 250 ML IV PRN (06:00)
--- NOTE | 2020-06-23 07:15 | NUR ---
Received pt. on ventilator A/C 16, tv550, FIO2 75%. PEEP+7. hemodynamically stable. Neuro-lizama unchanged. PICC line patent.Will continue with care plan.
[2020-06-23] MEDS: MODAFINIL 100 MG TABLET PO SCH (08:12)
[2020-06-23] MEDS: ASPIRIN 81 MG TAB.CHEW GT SCH (08:12)
[2020-06-23] MEDS: METOPROLOL TARTRATE 50 MG TABLET PO SCH ×2 (08:12→20:50)
[2020-06-23] MEDS: FERROUS SULFATE 300 MG/5 ML LIQUID UDC PO SCH ×3 (08:12→17:00)
[2020-06-23] MEDS: MULTIVITAMINS,THERAPEUTIC TABLET PO SCH (08:12)
[2020-06-23] MEDS: PANTOPRAZOLE ORAL SUSPENSION 40 MG SUSPDR.PKT GT SCH (08:12)
[2020-06-23] MEDS: AMLODIPINE 5 MG TABLET PO SCH ×2 (08:13→17:00)
[2020-06-23] MEDS: CHLORHEXIDINE GLUCONATE 15 ML MOUTHWASH MM SCH ×2 (08:13→20:50)
[2020-06-23] MEDS: CLOTRIMAZOLE 1% CREAM 30 GM TUBE TOP SCH ×3 (08:13→17:21)
[2020-06-23] MEDS: Z GUARD REMEDY PASTE 57 GM TUBE TOP SCH (08:14)
[2020-06-23] MEDS: HEPARIN SODIUM,PORCINE 5,000 UNITS/ML VIAL SQ SCH ×2 (08:15→20:51)
[2020-06-23] MEDS: AMMONIUM LACTATE 12% LOTION 225 GM BOTTLE TP SCH (08:15)
[2020-06-23] MEDS: NEPRO 1000 ML NG PRN (08:21)
--- NOTE | 2020-06-23 08:30 | NUR ---
Pulmonary services, Dr. Nicole in the unit to follow up on patient, report given see order hx.
--- NOTE | 2020-06-23 09:43 | NUR ---
operations director called to be informed of Ms. Ron's request to come and visit pt. everyday at least for 5minutes. As informed by Director "per CDC guidelines fmaily visiting is not yet open for acute care facilities and as of today we need to abide to this guidelines" Ms Patel called and message left informing her of visiting guidelines for the hospital.
--- NOTE | 2020-06-23 15:48 | NUR ---
HD R.N. in the unit to dialyse pt.
--- NOTE | 2020-06-23 16:15 | NUR ---
patient with persistent cough trigering both dialysis, and vent alarms. HD RN at bedside. Pulmonary toileting render patient responded well copious secretions suctioned HD continued.
[2020-06-23] MEDS: EPOETIN ALFA-EPBX 10,000 UNIT/ML VIAL IV PRN (16:16)
--- NOTE | 2020-06-23 16:24 | NUR ---
AT this time pt. remains with coughing and HR rate went down to low 50's and quickly dropping to the 30's. with saturation dropping to the low 70's. Code blue called. compressions started and during code pt. received 2 doses of epinephrine with rounds of compressions, pt. as well received, 10 units of insulin and 1 amp D50 as ordered by Louis Murphy. for more details on medications administered see code blue sheet. HD stopped at this time and only 100cc of fluid removed.
--- NOTE | 2020-06-23 16:30 | NUR ---
A call to Dr. Pascal attending physician, notified and updated by the under-sign and Dr. Monreal of pt's condition. Later on HD Grace Bethea spoke with Dr. Shook and Bernice Serrano
--- NOTE | 2020-06-23 16:30 | NUR ---
During code pt. received 1LNS. and started on vasopressors for low blood pressure of 65/32 and pressor titrated off Q15 for stable SBP.
[2020-06-23] MEDS ORDERED: DEXTROSE 50% 50 ML DISP.SYRIN IV ONE (16:43)
[2020-06-23] MEDS ORDERED: EPINEPHRINE 1:10,000 1 MG/10 ML DISP.SYRIN IV ONE ×3 (16:43→22:14)
[2020-06-23 16:55] LABS: ABG BASE EXCESS -10.3 mmol/L; ABG HCO3 17.2 mmol/L; ABG PCO2 44.9 mmHg (35.0-45.0); ABG PO2 79.5 mmHg (75.0-100.0); ABG SITE RIGHT RADIAL; ABG TOTAL HEMOGLOBIN 9.4 G/dL (12.0-16.0); COHb 1.5 % (0.5-1.5); MetHb 0.5 % (0.0-1.5); O2Hb 88.1 % (94.0-97.0); VENT MODE VENT - A/C; VT, ABG 550 mL
[2020-06-23] MEDS ORDERED: NOREPINEPHRINE BITARTRATE 8 MG in IV NORMAL SALINE 242 ML IV PRN (17:15)
[2020-06-23] MEDS ORDERED: SODIUM BICARBONATE 8.4% 50 MEQ/50 ML DISP.SYRIN IV ONE ×2 (17:15→22:14)
[2020-06-23] MEDS: NOREPINEPHRINE BITARTRATE 8 MG in IV NORMAL SALINE 242 ML IV PRN (17:23)
--- NOTE | 2020-06-23 17:30 | NUR ---
A call from Dr. Perez and as requested by . MS Ron should be allowed to come in with her other relatives to pay her respects to patient who remains unstable. Family Practitioner notified and arrangements done with security to escort family up to the unit when they arrived for visit.
--- NOTE | 2020-06-23 17:46 | NUR ---
A call from Ms. Ron to inform me that she will come to visit later on probably in the lacquer sizer. Incoming shift will be endorse of visiting arrangements.
--- NOTE | 2020-06-23 17:54 | NUR ---
At this time dry cleaning attendant Dr. Nicole notified of code blue event and orders to increase back up rate to 24 and PEEP to 10.
[2020-06-23 17:58] LABS: POTASSIUM 5.3 mmol/L (3.5-5.1)
[2020-06-23 18:29] LABS: BASOPHILS # (AUTO) 0.1 K/uL (0.0-8.0); EOSINOPHILS % (AUTO) 0.5 % (0.0-7.0); HEMOGLOBIN 9.2 g/dL (10.9-14.3); MEAN CORPUSCULAR HGB CONC 29 g/dL (32.3-35.6)
[2020-06-23 18:30] LABS: BASOPHILS % (AUTO) 0.5 % (0.0-2.0); EOSINOPHILS # (AUTO) 0.1 K/uL (0.0-0.7); HEMATOCRIT 31.8 % (31.2-41.9); LYMPHOCYTES # (AUTO) 2.5 K/uL (20.0-40.0); LYMPHOCYTES % (AUTO) 8.3 % (20.5-51.5); MEAN CORPUSCULAR HEMOGLOBIN 23.8 uug (24.7-32.8); MEAN CORPUSCULAR VOLUME 82.7 fL (75.5-95.3); MONOCYTES # (AUTO) 1.3 K/uL (2.0-10.0); MONOCYTES % (AUTO) 4.4 % (0.0-11.0); NEUTROPHILS % (AUTO) 86.3 % (38.5-71.5); PLATELET COUNT (AUTO) 279 K/uL (179-408); RED BLOOD CELL COUNT(AUTO) 3.85 MIL/uL (3.63-4.92)
[2020-06-23 18:44] LABS: BILIRUBIN,TOTAL 0.6 mg/dL (0.2-1.0); MAGNESIUM 2.6 mg/dL (1.8-2.4); TOTAL PROTEIN, SERUM 7.3 g/dL (6.4-8.2)
[2020-06-23 18:53] LABS: BILIRUBIN,DIRECT 0.3 mg/dL (0.0-0.2)
[2020-06-23 18:56] LABS: PHOSPHOROUS 8.7 mg/dL (2.5-4.9); WHITE BLOOD COUNT (AUTO) 30.1 K/uL (3.8-11.8)
[2020-06-23] MEDS ORDERED: IV NS 1000 ML 1,000 ML IV ONE (19:00)
--- NOTE | 2020-06-23 19:00 | NUR ---
Received patient from AM nurse. Patient is currently post-code 1615. She is being ventilated" [id number]:100%. Code philip was called at/around 1615 by day shift. She is on Levophed 0.02mcg/kg/min. O2 saturations are hovering in the low 80s. Safety measures in place.
[2020-06-23] MEDS: ATORVASTATIN 40 MG TABLET PO SCH (20:50)
[2020-06-23] MEDS: ACETAMINOPHEN 650 MG/20.3 ML LIQUID UDC NG PRN (20:50)
--- NOTE | 2020-06-23 21:00 | NUR ---
Notified Dr. Sylvester Hartman of patients high WBC count and of patients low O2 saturations. Stat ABG ordered as well as Zosyn 3.375mg to be dosed by Pharmacy.
[2020-06-23 21:25] LABS: ABG BASE EXCESS -14.2 mmol/L; ABG HCO3 13.1 mmol/L; ABG PCO2 35.7 mmHg (35.0-45.0); ABG PH 7.183 (7.350-7.450); ABG PO2 57.3 mmHg (75.0-100.0); ABG SITE LEFT RADIAL; ABG TOTAL HEMOGLOBIN 10.7 G/dL (12.0-16.0); COHb 1.4 % (0.5-1.5); MetHb 0.6 % (0.0-1.5); O2Hb 75.3 % (94.0-97.0); VENT MODE VENT - A/C; VT, ABG 550 mL
--- NOTE | 2020-06-23 21:30 | NUR ---
Code blue called. Patient cyanotic - bradycardic. Refer to Code Blue sheet.
[2020-06-23] MEDS ORDERED: PIPERACILLIN SODIUM/TAZOBACTAM 3.375 G in IV DEXTROSE 5% 50 ML IV SCH (22:00)
[2020-06-23] MEDS ORDERED: PIPERACILLIN/TAZO 2.25 G in IV DEXTROSE 5% 50 ML IV SCH (22:00)
--- NOTE | 2020-06-23 22:00 | NUR ---
Dr. Conde Emergency room spoke with patients nelly Ontiveros who told her to make the patient a DNR. This was done over the telephone.
[2020-06-23] MEDS ORDERED: ATROPINE SULFATE 1 MG/10 ML DISP.SYRIN IV ONE (22:14)
--- NOTE | 2020-06-23 22:20 | NUR ---
Notified patient niece of the patient passing away at [id number]
--- NOTE | 2020-06-23 22:20 | NUR ---
Notified Dr. Sylvester Hartman of patient expiring at [phone]
[2020-06-23 22:21] LABS: BAND % (MANUAL) 6 % (0-10); LYMPHOCYTES % (MANUAL) 5 % (20-40); METAMYELOCYTES % 3 % (0-1); MONOCYTES % (MANUAL) 1 % (2-10); MYELOCYTES % 1 % (0-0); NEUTROPHILS % (MANUAL) 84 % (42-75)
--- NOTE | 2020-06-23 22:29 | NUR ---
Patient apneic for 5 minutes Pupils fixed and dilated No audible heart tones and breath sounds No palpable pulses and corneal reflexes Pronounced at 2215.
--- NOTE | 2020-06-23 23:00 | NUR ---
Post mortem care done. [facility] called - Reference # [id number]. Spoke with family about making mortuary arrangements - was told they will "make some calls in the morning". Family does not want patients sister to be notified - Dr. Sylvester Hartman made aware to not call patients sister.
--- NOTE | 2020-06-24 00:30 | NUR ---
[place] [facility] [place]. Tagged applied per protocol.
== END 2020-06-23 22:15 | disposition expired | DRG 720 ==
LOC: ER 18:17 → TELE3 20:22 → CCU 06-09 02:35
PROVIDERS: ADMIT Internal Medicine; ATTEND Internal Medicine
PROC: 5A12012 Performance of Cardiac Output, Single, Manual (ICD-10-PCS; principal; 2020-06-09)
PROC: B548ZZA Ultrasonography of Superior Vena Cava, Guidance (ICD-10-PCS; principal; 2020-06-09)
PROC: 02HV33Z Insertion of Infusion Device into Superior Vena Cava, Percutaneous Approach (ICD-10-PCS; principal; 2020-06-09)
PROC: 5A1955Z Respiratory Ventilation, Greater than 96 Consecutive Hours (ICD-10-PCS; principal; 2020-06-09)
PROC: 5A1D70Z Performance of Urinary Filtration, Intermittent, Less than 6 Hours Per Day (ICD-10-PCS; 2020-06-11)
PROC: 5A12012 Performance of Cardiac Output, Single, Manual (ICD-10-PCS; 2020-06-23)
DX: A41.9 Sepsis, unspecified organism (principal); I46.9 Cardiac arrest, cause unspecified; J96.21 Acute and chronic respiratory failure with hypoxia; J96.22 Acute and chronic respiratory failure with hypercapnia; N17.0 Acute kidney failure with tubular necrosis; R65.21 Severe sepsis with septic shock; I13.0 Hypertensive heart and chronic kidney disease with heart failure and stage 1 through stage 4 chronic kidney disease, or unspecified chronic kidney disease; E11.42 Type 2 diabetes mellitus with diabetic polyneuropathy; G92 Toxic encephalopathy; Z93.0 Tracheostomy status; Z99.11 Dependence on respirator [ventilator] status; E83.51 Hypocalcemia; Z68.41 Body mass index [BMI] 40.0-44.9, adult; I77.1 Stricture of artery; E11.51 Type 2 diabetes mellitus with diabetic peripheral angiopathy without gangrene; I50.33 Acute on chronic diastolic (congestive) heart failure; E66.2 Morbid (severe) obesity with alveolar hypoventilation; I21.A1 Myocardial infarction type 2; D64.9 Anemia, unspecified; E87.1 Hypo-osmolality and hyponatremia; G93.1 Anoxic brain damage, not elsewhere classified; J98.11 Atelectasis; I87.2 Venous insufficiency (chronic) (peripheral); N18.9 Chronic kidney disease, unspecified; E11.22 Type 2 diabetes mellitus with diabetic chronic kidney disease; L03.116 Cellulitis of left lower limb; I27.20 Pulmonary hypertension, unspecified; I35.0 Nonrheumatic aortic (valve) stenosis; L85.3 Xerosis cutis; B35.3 Tinea pedis; E87.4 Mixed disorder of acid-base balance; E78.5 Hyperlipidemia, unspecified; Z74.01 Bed confinement status; Z79.4 Long term (current) use of insulin; I48.0 Paroxysmal atrial fibrillation; I48.92 Unspecified atrial flutter; B37.49 Other urogenital candidiasis; K21.9 Gastro-esophageal reflux disease without esophagitis; R13.10 Dysphagia, unspecified; Z87.11 Personal history of peptic ulcer disease; Z79.01 Long term (current) use of anticoagulants; I25.10 Atherosclerotic heart disease of native coronary artery without angina pectoris
CPT/HCPCS: 36415; 36600; 70030-TC; 70450; 71045; 73590; 76775; 83550; 83605; 83735; 84100; 84156; 84300; 85025; 85610; 85730; 86704; 86705; 86706; 86708; 86709; 86803; 87040; 87070; 87077; 87086; 87340; 87350; 90937; 92950; 93005; 93307; 94002; 94003; A4217; A4663; C9113; G0378; J0171; J0461; J0610; J0885; J1580; J1644; J1815; J2150; J2185; J2248; J2270; J2543; J3370; J3490; J3535; J7030; J7050; J7060; U0003